=== PATIENT | female | born 1975 | race Caucasian/White ===

== ENCOUNTER → 2016-12-26 | Outpatient (CLI) | payer OTHER ==
[~2016-12-26] MED LIST: AMLO5TAB2 PO; ANTIBIOTIC; ARPZ10T; CEPH250T PO; CYCL10TA9 PO; DICY10CA26 PO; DULO60CA6; ENAL20TA PO; FAMO20TA5 PO; FLX20C; GABA300C PO; HYDR-3730 PO; HYDR1TAB PO; HYDROCODONE; HYOS-19 SL; IBP800T PO; METH4TAB PO; NF-ESOM40C PO; NF-TRA/ACE PO; PHEN16.297 PO; PHEN37.555 PO; PRM12.5SU RC; PROP1TAB77; PROP1TAB77 PO; RNT150T PO; SCP1.5TD TD; TPR25T PO; VARE1TAB17 PO
--- NOTE | 2016-12-26 18:59 | Diagnostic Imaging Report ---
PROCEDURE: CT abdomen and pelvis without contrast. TECHNIQUE: Multiple contiguous axial images were obtained through the abdomen and pelvis without the use of intravenous contrast. INDICATION: Abdominal wall mass. FINDINGS: The lung bases appear clear. The liver, the spleen, the pancreas, and the adrenal glands appear unremarkable for an unenhanced exam. Cholecystectomy clips are seen. The kidneys demonstrate no significant hydronephrosis and no urinary tract stones are seen. The abdominal aorta is normal in caliber. No para-aortic significantly enlarged lymph node is noted. There is evidence of prior ventral hernia repair with a mesh. No significant free fluid or fluid collection in the abdomen or pelvis is seen. Around the umbilicus and the subcutaneous fat, there is soft tissue thickening probably related to postoperative scarring. There is no evidence of hernia recurrence. The osseous structures demonstrate post fusion changes. IMPRESSION: 1. No urinary tract stone. 2. Postsurgical changes in the anterior abdominal wall around the umbilicus probably related to scarring with no evidence of hernia recurrence. Dictated by: Dictated on workstation # [id number]
== END ==
LOC: RAD 12:10
PROVIDERS: ATTEND Family Medicine
DX: R19.02 Left upper quadrant abdominal swelling, mass and lump (principal)
CPT/HCPCS: 74176

== ENCOUNTER → 2017-04-23 | Outpatient (CLI) | payer OTHER ==
--- NOTE | 2017-04-23 17:46 | Diagnostic Imaging Report ---
INDICATION: Acute left shoulder pain. TECHNIQUE: Three views of the left shoulder CORRELATION STUDY: None FINDINGS: The glenohumeral and acromioclavicular alignment are maintained and unremarkable. There is no evidence for acute fracture or dislocation. The visualized soft tissues are unremarkable. IMPRESSION: 1. Negative for acute bony abnormality about the shoulder. Dictated by: Dictated on workstation # [id number]
== END ==
LOC: RAD 17:27
PROVIDERS: ATTEND Nurse Practitioner Family
DX: M25.512 Pain in left shoulder (principal)
CPT/HCPCS: 73030

== ENCOUNTER → 2017-05-02 | Outpatient (CLI) | payer OTHER ==
--- NOTE | 2017-05-02 20:14 | Diagnostic Imaging Report ---
PROCEDURE: MRI left upper extremity without contrast. TECHNIQUE: Multiplanar, multisequence non contrast-enhanced MRI of the left upper extremity was accomplished. INDICATION: Left shoulder pain. No known injury. COMPARISON: Radiographs from 04/23/2017 FINDINGS: No acute fracture or dislocation is seen in the left shoulder. Alignment appears normal. There is no significant joint effusion. There is minimal tendinosis of the distal supraspinatus tendon. The remainder of the rotator cuff appears intact. No high-grade partial-thickness or full-thickness tear seen of the left rotator cuff. The long head of the biceps tendon appears normal in course and signal. The glenoid labrum is suboptimally evaluated in the absence of contrast, however, no discrete labral tear seen. No paralabral cysts are identified. The spinoglenoid and suprascapular notches are clear. There are mild degenerative changes in the acromioclavicular joint. The acromion has a flat undersurface without significant downsloping or hooking. The coracoacromial and coracoclavicular ligaments are intact. The inferior glenohumeral ligament is intact. The subcoracoid fat is clear. No soft tissue fluid collections or axillary lymphadenopathy is seen. There is moderate atrophy of the teres minor muscle. No masses or fluid collections are identified in the quadrilateral space. IMPRESSION: 1. Minimal tendinosis of the left supraspinatus tendon with no high-grade partial-thickness or full-thickness rotator cuff tear. 2. Moderate atrophy of the teres minor muscle. No masses or fluid collections are seen in the quadrilateral space. Dictated on workstation # [id number]
== END ==
LOC: RAD 17:26
PROVIDERS: ATTEND Nurse Practitioner Family
DX: M62.512 Muscle wasting and atrophy, not elsewhere classified, left shoulder (principal)
CPT/HCPCS: 73221

== ENCOUNTER → 2017-07-07 | Outpatient (CLI) | payer OTHER ==
--- NOTE | 2017-07-07 13:43 | Diagnostic Imaging Report ---
EXAMINATION: Right foot, three views. COMPARISON: October 04, 2008. MRI right ankle July 23, 2013. HISTORY: 41-year-old female, pain in the region of the dorsal foot and great toe. 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 There is diffuse nonspecific soft tissue edema. This is most notable at the level of the metatarsals. There is no identified acute fracture or dislocation. There is no radiopaque foreign body. There is no cortical or aggressive bone destruction. There is no periosteal reaction. The joint spaces appear well preserved. IMPRESSION: 1. Nonspecific diffuse soft tissue swelling, most notable at the level of the metatarsals. 2. Additional radiographic evaluation of the right foot is grossly unremarkable. Dictated by: Dictated on workstation # [id number]
== END ==
LOC: RAD 12:50
PROVIDERS: ATTEND Nurse Practitioner Family
DX: M79.89 Other specified soft tissue disorders (principal); M79.671 Pain in right foot
CPT/HCPCS: 73630

== ENCOUNTER → 2017-12-12 | Outpatient (CLI) | payer OTHER ==
[~2017-12-12] MED LIST changes: -AMLO5TAB2 PO; +AMLO5TAB7 PO
--- NOTE | 2017-12-12 13:35 | Diagnostic Imaging Report ---
PROCEDURE: CT sinuses without contrast. TECHNIQUE: Multiple contiguous axial images were obtained through the sinuses without the use of intravenous contrast. Coronal and sagittal reformations were then performed. INDICATION: Chronic sinusitis with facial pain. FINDINGS: Visualized paranasal sinuses are clear. There is no mural thickening or air-fluid level. There is slight leftward bowing of the nasal septum with mild rightward septal spurring. Ostiomeatal complexes are patent, bilaterally. IMPRESSION: No CT evidence of sinusitis. Dictated by: Dictated on workstation # [id number]
== END ==
LOC: RAD 13:00
PROVIDERS: ATTEND Otolaryngology Otolaryngology/Facial Plastic Surgery
DX: J32.9 Chronic sinusitis, unspecified (principal)
CPT/HCPCS: 70486

== ENCOUNTER 2019-03-16 05:35 | Outpatient (CLI) | payer OTHER ==
[~2019-03-16] VITALS: Ht 175.3 cm; Wt 108.6 kg
[~2019-03-16 05:35] MED LIST changes: -AMLO5TAB7 PO; +AMLO5TAB9 PO
[2019-03-16] MEDS ORDERED: AZIL1TAB3 PO (09:57)
[2019-03-16] MEDS ORDERED: BUPR100T7 PO (09:57)
[2019-03-16] MEDS ORDERED: ALPR0.5T PO (09:57)
[2019-03-16] MEDS ORDERED: CARI3CAP PO (09:57)
== END 2019-03-16 10:03 | disposition home or self-care (01) ==
LOC: PREOP 05:35
PROVIDERS: ATTEND Specialist
DX: Z01.818 Encounter for other preprocedural examination (principal)

== ENCOUNTER 2019-03-19 06:06 | Day surgery (SDC) | payer OTHER ==
[~2019-03-19] VITALS: Ht 175.3 cm; Wt 108.6 kg
[~2019-03-19 06:06] MED LIST changes: +ALPR0.5T PO; +AZIL1TAB3 PO; +BUPR100T7 PO; +CARI3CAP PO
[2019-03-19 06:15] VITALS: BP 107/68
[2019-03-19] MEDS ORDERED: LIDOCAINE PF 1% 2 ML VIAL IR PRN (06:15)
[2019-03-19] MEDS ORDERED: TIMOLOL MALEATE 0.5% 5 ML (TIMOPTIC) BTL OU PRN (06:15)
[2019-03-19] MEDS ORDERED: POVIDONE (BETADINE) OPHTH SOLN 5% 30 ML OP ONE (06:15)
[2019-03-19] MEDS ORDERED: MOXIFLOXACIN OPHTH SOLN 5 MG/ML 0.3 ML SYRINGE OP ONE (06:15)
[2019-03-19] MEDS: TETRACAINE 0.5% OPHTH SOLN 4 ML BTL (SINGLE DOSE ONLY) OU PRN ×4 (06:26→06:59)
[2019-03-19] MEDS: PHENYLEPHRINE 10% OPHTH (NEO-SYN) 5 ML BTL OU SCH ×3 (06:40→06:59)
[2019-03-19] MEDS: CYCLOPENTOLATE 1% (CYCLOGYL) 2 ML DROPS OP SCH ×3 (06:41→06:59)
[2019-03-19] MEDS ORDERED: acetaZOLAMIDE ER 500 MG CAP (DIAMOX SEQUELS) PO ONE (07:30)
[2019-03-19] MEDS ORDERED: MIDAZOLAM 2 MG/2 ML (VERSED) VIAL ONE (08:08)
[2019-03-19 08:20] VITALS: BP 94/62
--- NOTE | 2019-03-19 08:39 | Ophthalmologist Pre-Op Note ---
Pre-Operative Progress Note H&P Reviewed The H&P was reviewed, patient examined and no changes noted. Date H&P Reviewed: Mar 19, 2019 Time H&P Reviewed: 07:44 Pre-Op Dx Cataract, Left Eye LILLIE CARRASQUILLO MD Mar 19, 2019 08:39
--- NOTE | 2019-03-19 08:40 | Ophthalmology Operative Report ---
Cataract removal/placement IOL PREOPERATIVE DIAGNOSIS: Cataract Left Eye POSTOPERATIVE DIAGNOSIS: Cataract Left Eye PROCEDURE: Cataract removal and placement of posterior chamber implant, left eye SURGEON: Joseluis Carrasquillo ANESTHESIA: Topical with sedation COMPLICATIONS: None ESTIMATED BLOOD LOSS: Minimal DESCRIPTION OF PROCEDURE: After proper informed consent was obtained, the patient, a 43 female, was taken to the Operating Room and the left eye was anesthetized with tetracaine. The left eye was then prepped and draped in the usual manner. A wire lid speculum was placed. A paracentesis was made at the left hand position. Preservative free lidocaine was injected into the anterior chamber followed by viscoelastic. A clear corneal incision was made in the temporal position. A capsulorrhexis was preformed and the central nuclear and cortical material were removed. The posterior capsule was polished and an Brody 11.5 SN6AT7 was placed into the capsular bag. The residual viscoelastic was aspirated and balanced saline solution was injected into the anterior chamber. Moxifloxacin was injected into the anterior chamber. The wound was checked and found to be water tight. The patient tolerated the procedure well without complications. JOSELUIS CARRASQUILLO MD Mar 19, 2019 08:40
--- NOTE | 2019-03-19 15:05 | Anesthesia-General Post-Op ---
MAC Patient Condition Mental Status/LOC: Same as Preop Cardiovascular: Satisfactory Nausea/Vomiting: Absent Respiratory: Satisfactory Pain: Controlled Complications: Absent Post Op Complications Complications None Follow Up Care/Instructions Patient Instructions None needed. Anesthesiology Discharge Order Discharge Order Patient is doing well, no complaints, stable vital signs, no apparent adverse anesthesia problems. No complications reported per nursing. JUAN CASAS CRNA Mar 19, 2019 15:05
== END 2019-03-19 08:20 | disposition home or self-care (01) ==
LOC: SDC 06:06
PROVIDERS: ATTEND Specialist
DX: H25.12 Age-related nuclear cataract, left eye (principal); I10 Essential (primary) hypertension; M19.90 Unspecified osteoarthritis, unspecified site; G47.00 Insomnia, unspecified; F41.9 Anxiety disorder, unspecified; F32.9 Major depressive disorder, single episode, unspecified; Z91.048 Other nonmedicinal substance allergy status; Z90.710 Acquired absence of both cervix and uterus; Z90.89 Acquired absence of other organs; Z90.49 Acquired absence of other specified parts of digestive tract; Z79.899 Other long term (current) drug therapy

== ENCOUNTER 2019-03-26 06:15 | Day surgery (SDC) | payer OTHER ==
[~2019-03-26] VITALS: Ht 175 cm; Wt 108.6 kg
[2019-03-26 06:15] VITALS: BP 99/86
[2019-03-26] MEDS ORDERED: LIDOCAINE PF 1% 2 ML VIAL IR PRN (06:30)
[2019-03-26] MEDS ORDERED: POVIDONE (BETADINE) OPHTH SOLN 5% 30 ML OP ONE (06:30)
[2019-03-26] MEDS ORDERED: MOXIFLOXACIN OPHTH SOLN 5 MG/ML 0.3 ML SYRINGE OP ONE (06:30)
[2019-03-26] MEDS ORDERED: TIMOLOL MALEATE 0.5% 5 ML (TIMOPTIC) BTL OU PRN (06:30)
[2019-03-26] MEDS: TETRACAINE 0.5% OPHTH SOLN 4 ML BTL (SINGLE DOSE ONLY) OU PRN ×4 (06:50→07:10)
--- NOTE | 2019-03-26 06:54 | Ophthalmologist Pre-Op Note ---
Pre-Operative Progress Note H&P Reviewed The H&P was reviewed, patient examined and no changes noted. Date H&P Reviewed: Mar 26, 2019 Time H&P Reviewed: 06:54 Pre-Op Dx Cataract, Right Eye LILLIE CARRASQUILLO MD Mar 26, 2019 06:54
[2019-03-26] MEDS: CYCLOPENTOLATE 1% (CYCLOGYL) 2 ML DROPS OP SCH ×3 (07:01→07:20)
[2019-03-26] MEDS: PHENYLEPHRINE 10% OPHTH (NEO-SYN) 5 ML BTL OU SCH ×3 (07:01→07:21)
[2019-03-26] MEDS ORDERED: MIDAZOLAM 2 MG/2 ML (VERSED) VIAL ONE (07:27)
[2019-03-26] MEDS ORDERED: acetaZOLAMIDE ER 500 MG CAP (DIAMOX SEQUELS) PO ONE (08:00)
--- NOTE | 2019-03-26 08:09 | Ophthalmology Operative Report ---
Cataract removal/placement IOL PREOPERATIVE DIAGNOSIS: Cataract Right Eye POSTOPERATIVE DIAGNOSIS: Cataract Right Eye PROCEDURE: Cataract removal and placement of posterior chamber implant, right eye SURGEON: Joseluis Carrasquillo ANESTHESIA: Topical with sedation COMPLICATIONS: None ESTIMATED BLOOD LOSS: Minimal DESCRIPTION OF PROCEDURE: After proper informed consent was obtained, the patient, a 43 female, was taken to the Operating Room and the right eye was anesthetized with tetracaine. The right eye was then prepped and draped in the usual manner. A wire lid speculum was placed. A paracentesis was made at the left hand position. Preservative free lidocaine was injected into the anterior chamber followed by viscoelastic. A clear corneal incision was made in the temporal position. A capsulorrhexis was preformed and the central nuclear and cortical material were removed. The posterior capsule was polished and Brody 12.0 SN6AT6 IOL was placed into the capsular bag. The residual viscoelastic was aspirated and balanced saline solution was injected into the anterior chamber. Moxifloxacin was injected into the anterior chamber. The wound was checked and found to be water tight. The patient tolerated the procedure well without complications. JOSELUIS CARRASQUILLO MD Mar 26, 2019 08:09
[2019-03-26 08:15] VITALS: BP 95/59
--- NOTE | 2019-03-26 14:11 | Anesthesia-General Post-Op ---
MAC Patient Condition Mental Status/LOC: Same as Preop Cardiovascular: Satisfactory Nausea/Vomiting: Absent Respiratory: Satisfactory Pain: Controlled Complications: Absent Post Op Complications Complications None Follow Up Care/Instructions Patient Instructions None needed. Anesthesiology Discharge Order Discharge Order Patient is doing well, no complaints, stable vital signs, no apparent adverse anesthesia problems. No complications reported per nursing. BRIAN BAHENA CRNA Mar 26, 2019 14:11
== END 2019-03-26 08:15 | disposition home or self-care (01) ==
LOC: SDC 06:15
PROVIDERS: ATTEND Specialist
DX: H25.11 Age-related nuclear cataract, right eye (principal); G47.00 Insomnia, unspecified; M19.90 Unspecified osteoarthritis, unspecified site; K21.9 Gastro-esophageal reflux disease without esophagitis; I10 Essential (primary) hypertension; F32.9 Major depressive disorder, single episode, unspecified; F41.9 Anxiety disorder, unspecified; Z91.048 Other nonmedicinal substance allergy status; Z87.891 Personal history of nicotine dependence; Z90.89 Acquired absence of other organs; Z79.899 Other long term (current) drug therapy; Z90.710 Acquired absence of both cervix and uterus

== ENCOUNTER 2019-04-12 12:25 | Inpatient (IN) | payer OTHER ==
[~2019-04-12] VITALS: Ht 172.7 cm; Wt 108.4 kg
[2019-04-12] VITALS (7 sets, daily range): BP systolic 96–118; BP diastolic 57–79
[2019-04-12] MEDS ORDERED: NS IV 1000 ML 1,000 ML ONE (13:32)
--- NOTE | 2019-04-12 13:32 | ED Lower Extremity ---
General Chief Complaint: Lower Extremity Stated Complaint: R LEG SWELLING Nursing Triage Note: PT AMB TO TRIAGE WITH COMPLAINT OF RIGHT LEG SWELLING AND REDNESS. STATES SYMPTOMS STARTED YESTERDAY. STATES HAS BEEN RUNNING FEVER AT HOME AND DOES FEEL LIGHTHEADED. Nursing Sepsis Screen: No Definite Risk Source: patient Exam Limitations: no limitations History of Present Illness Date Seen by Provider: Apr 12, 2019 Time Seen by Provider: 13:28 Initial Comments To ER with reports of awakening with a reddened painful foot and right lower leg, fever of 102 and lightheadedness. She denies nausea vomiting runny nose sore throat or body aches. History of right knee anterior cruciate ligament repair, sclerotherapy for varicose veins right lower extremity many years ago. No history of cellulitis. Primary care is Dr. Lee Onset: just prior to arrival Severity: moderate Pain/Injury Location: right leg, right foot Method of Injury: unknown Modifying Factors: Worse With Movement Allergies and Home Medications Allergies Coded Allergies: adhesive tape (Verified Allergy, Unknown, Hives, 03/16/19) Home Medications Alprazolam 0.5 Mg Tablet, 0.5 MG PO BID PRN for ANXIETY, (Reported) Azilsartan Med/Chlorthalidone 1 Each Tablet, 1 EACH PO DAILY, (Reported) Bupropion HCl 100 Mg Tablet.er, 100 MG PO DAILY, (Reported) Cariprazine Hydrochloride 3 Mg Capsule, 3 MG PO DAILY, (Reported) Patient Home Medication List Home Medication List Reviewed: Yes Review of Systems Constitutional: see HPI, chills, fever EENTM: see HPI Respiratory: no symptoms reported Cardiovascular: no symptoms reported Genitourinary: no symptoms reported Musculoskeletal: no symptoms reported Skin: see HPI Psychiatric/Neurological: No Symptoms Reported Past [id number] Hx Patient Social History Alcohol Use: Occasionally Uses Recreational Drug Use: No Smoking Status: Former Smoker Recent Foreign Travel: No Contact w/Someone Who Travel: No Recent Infectious Disease Expo: No Recent Hopitalizations: Yes (18 surgeries) Immunizations Up To Date Tetanus Booster (TDap): More than 5yrs PED Vaccines UTD: No Past Medical History Surgeries: Yes (WISDOM TEETH, HERNIA X4, COLONOSCOPIES, UPPER GIS) Hysterectomy Respiratory: No Cardiac: Yes Neurological: Yes 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 Disorders: No Female 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 Disorders: Denies RADIOTELEGRAPHER History: Hysterectomy Sexually Transmitted Disease: No HIV/AIDS: No Gastrointestinal: Yes Gastroesophageal Reflux, Chronic Diarrhea Musculoskeletal: No (HX BACK SURGERY, NO PAIN NOW) Chronic Back Pain Endocrine: No Loss of Vision: Denies Hearing Impairment: Denies Cancer: No Psychosocial: Yes (TREMENDOUS AMOUNT OF STRESS) Anxiety, Depression Integumentary: No Blood Disorders: No Adverse Reaction/Blood Tranf: No Family Medical History No Family History of: AIDS Abdominal aortic aneurysm [place]'s disease Alcoholism Alzheimer's disease Aphasia Arthritis Asthma Cancer of mouth Cardiovascular disease Cataracts Colon cancer Completed stroke Congenital disease Congenital heart disease Coronary thrombosis Cystic fibrosis Deafness or hearing loss Dementia Diabetes mellitus Drug abuse Dysphasia Fibrocystic disease of breast Gastroenteritis Glaucoma Headache disorder Hypercholesterolemia Hypertension Infertility Kidney disease Myocardial infarction Neoplasm Not obtainable due to adoption Osteoporosis Parkinson's disease Prostate cancer Psychosocial problem Respiratory disorder Seizure disorder Severe allergy Thyroid disease Tuberculosis Visual disorder Physical Exam Vital Signs Vital Signs - First Documented 04/12/19 13:09 Temp 36.9 Pulse 114 Resp 20 B/P (MAP) 96/68 (77) Pulse Ox 99 O2 Delivery Room Air Capillary Refill : Less Than 3 Seconds Height, Weight, BMI Height: 5'9.00" Weight: 221lbs. 0.0oz. 100.507225cn; 35.00 BMI Method:Stated General Appearance: WD/WN, no apparent distress HEENT: PERRL/EOMI, normal ENT inspection Neck: non-tender, full range of motion Respiratory: no respiratory distress, no accessory muscle use Hips: bilateral hip non-tender, bilateral hip normal inspection, bilateral hip normal range of motion Legs: bilateral leg non-tender, bilateral leg normal inspection, bilateral leg normal range of motion Knees: bilateral knee non-tender, bilateral knee normal inspection, bilateral knee normal range of motion Ankles: bilateral ankle non-tender, bilateral ankle normal inspection, bilateral ankle normal range of motion Feet: right foot other (beginning at the dorsal aspect of the right foot is significant erythema that is not well demarcated, there is no evidence that this is a purulent infection. There is erythema of the anterior ankle and then a separate spots to the lateral proximal right tib-fib/fib.) Neurologic/Psychiatric: alert, normal mood/affect, oriented x 3 Skin: normal color, warm/dry Progress/Results/Core Measures Results/Orders Lab Results Laboratory Tests Test 04/12/19 13:30 04/12/19 14:10 Range/Units White Blood Count 12.1 H 4.3-11.0 10^3/uL Red Blood Count 4.21 L 4.35-5.85 10^6/uL Hemoglobin 13.6 11.5-16.0 G/DL Hematocrit 39 35-52 % Mean Corpuscular Volume 94 80-99 FL Mean Corpuscular Hemoglobin 32 25-34 PG Mean Corpuscular Hemoglobin Concent 35 32-36 G/DL Red Cell Distribution Width 12.4 10.0-14.5 % Platelet Count 215 130-400 10^3/uL Mean Platelet Volume 9.5 7.4-10.4 FL Neutrophils (%) (Auto) 92 H 42-75 % Lymphocytes (%) (Auto) 4 L 12-44 % Monocytes (%) (Auto) 4 0-12 % Eosinophils (%) (Auto) 0 0-10 % Basophils (%) (Auto) 0 0-10 % Neutrophils # (Auto) 11.1 H 1.8-7.8 X 10^3 Lymphocytes # (Auto) 0.5 L 1.0-4.0 X 10^3 Monocytes # (Auto) 0.5 0.0-1.0 X 10^3 Eosinophils # (Auto) 0.0 0.0-0.3 10^3/uL Basophils # (Auto) 0.0 0.0-0.1 10^3/uL Neutrophils % (Manual) 92 % Lymphocytes % (Manual) 4 % Monocytes % (Manual) 1 % Band Neutrophils 3 % Blood Morphology Comment NORMAL Prothrombin Time 13.9 12.2-14.7 SEC INR Comment 1.0 0.8-1.4 Activated Partial Thromboplast Time 30 24-35 SEC Sodium Level 133 L 135-145 MMOL/L Potassium Level 4.0 3.6-5.0 MMOL/L Chloride Level 97 L 98-107 MMOL/L Carbon Dioxide Level 24 21-32 MMOL/L Anion Gap 12 5-14 MMOL/L Blood Urea Nitrogen 17 7-18 MG/DL Creatinine 1.57 H 0.60-1.30 MG/DL Estimat Glomerular Filtration Rate 36 BUN/Creatinine Ratio 11 Glucose Level 128 H 70-105 MG/DL Calcium Level 10.3 H 8.5-10.1 MG/DL Corrected Calcium 10.1 8.5-10.1 MG/DL Total Bilirubin 0.7 0.1-1.0 MG/DL Aspartate Amino Transf (AST/SGOT) 24 5-34 U/L Alanine Aminotransferase (ALT/SGPT) 18 0-55 U/L Alkaline Phosphatase 71 40-136 U/L Total Protein 7.8 6.4-8.2 GM/DL Albumin 4.2 3.2-4.5 GM/DL Lactic Acid Level 1.77 0.50-2.00 MMOL/L My Orders Orders - TUCKER TAMAYO APRN Cbc With Automated Diff (04/12/19 13:34) Comprehensive Metabolic Panel (04/12/19 13:34) Blood Culture (04/12/19 13:34) Sputum Culture (04/12/19 13:34) Urinalysis (04/12/19 13:34) Urine Culture (04/12/19 13:34) Protime With Inr (04/12/19 13:34) Partial Thromboplastin Time (04/12/19 13:34) Chest 1 View, Ap/Pa Only (04/12/19 13:34) Ed Iv/Invasive Line Start (04/12/19 13:34) Ed Iv/Invasive Line Start (04/12/19 13:34) Vital Signs Adult Sepsis Patie Q15M (04/12/19 13:34) O2 (04/12/19 13:34) Remove Rings In Anticipation O (04/12/19 13:34) Lactic Acid Analyzer (04/12/19 13:34) Ns Iv 1000 Ml (Sodium Chloride 0.9%) (04/12/19 13:45) Cefazolin Injection (Ancef Injection) (04/12/19 13:45) Vancomycin Injection (Vancomycin Injecti (04/12/19 13:45) Ns Iv 1000 Ml (Sodium Chloride 0.9%) (04/12/19 13:32) Ns Iv 1000 Ml (Sodium Chloride 0.9%) (04/12/19 13:45) Manual Differential (04/12/19 13:30) Us Venous Lower Ext Rt (04/12/19 14:07) Medications Given in ED Current Medications Medications Dose Ordered Sig/Cassius Route Start Time Stop Time Status Last Admin Dose Admin Cefazolin Sodium 1000 mg/Sterile Water 10 ml @ 200 mls/hr ONCE ONCE IV 04/12/19 13:45 04/12/19 13:47 DC 04/12/19 14:06 200 MLS/HR Vancomycin HCl 1000 mg/Sodium Chloride 250 ml @ 250 mls/hr ONCE ONCE IV 04/12/19 13:45 04/12/19 14:44 DC 04/12/19 14:11 250 MLS/HR Vital Signs/I&O 04/12/19 13:09 Temp 36.9 Pulse 114 Resp 20 B/P (MAP) 96/68 (77) Pulse Ox 99 O2 Delivery Room Air Blood Pressure Mean: 77 Departure Communication (Admissions) Time/Spoke to Admitting Phy: 14:[address] Rome, we will admit on Ancef and vancomycin. Initial blood pressure 96 systolic, repeat blood pressure 82/66, heart rate 102. I will give her fluid bolus based on ideal body weight of 68 kg rather than actual body weight. 1453-after a 2 L fluid bolus heart rate has come down to 82, oxygen remains 99% room air, blood pressure up to 101/65. Capillary refill is brisk, alert and oriented Impression Primary Impression: Severe sepsis Additional Impression: Cellulitis of right lower extremity Disposition: ADMITTED INPATIENT Condition: Stable Admissions Decision to Admit Reason: Admit from ER (General) Decision to Admit/Date: Apr 12, 2019 Time/Decision to Admit Time: 13:41 Departure-Patient Inst. Referrals: ITZ LEE MD (PCP/Family) Primary Care Physician TUCKER TAMAYO APRN Apr 12, 2019 13:32
[2019-04-12 13:42] LABS: BASOPHILS % (AUTO) 0 % (0-10); EOSINOPHILS % (AUTO) 0 % (0-10); HEMATOCRIT 39 % (35-52); HEMOGLOBIN 13.6 G/DL (11.5-16.0); LYMPHOCYTES # (AUTO) 0.5 X 10^3 (1.0-4.0); LYMPHOCYTES % (AUTO) 4 % (12-44); MEAN CORPUSCULAR HEMOGLOBIN 32 PG (25-34); MEAN CORPUSCULAR HGB CONC 35 G/DL (32-36); MEAN CORPUSCULAR VOLUME 94 FL (80-99); MEAN PLATELET VOLUME 9.5 FL (7.4-10.4); MONOCYTES # (AUTO) 0.5 X 10^3 (0.0-1.0); MONOCYTES % (AUTO) 4 % (0-12); NEUTROPHILS # (AUTO) 11.1 X 10^3 (1.8-7.8); NEUTROPHILS % (AUTO) 92 % (42-75); PLATELET COUNT 215 10^3/uL (130-400); RED CELL DISTRIBUTION WIDTH 12.4 % (10.0-14.5); WHITE BLOOD COUNT 12.1 10^3/uL (4.3-11.0)
[2019-04-12] MEDS ORDERED: ceFAZolin INJECTION 1,000 MG in WATER (STERILE) FOR INJECTION 10 ML IV ONE (13:45)
[2019-04-12] MEDS ORDERED: VANCOMYCIN INJECTION 1,000 MG in NS (IVPB) 250 ML IV ONE (13:45)
[2019-04-12] MEDS ORDERED: NS IV ONE (13:45)
[2019-04-12] MEDS: NS IV 1000 ML 1,000 ML IV SCH ×2 (13:47→13:58)
[2019-04-12 13:53] LABS: PROTHROMBIN TIME PATIENT 13.9 SEC (12.2-14.7)
[2019-04-12 14:00] LABS: ALBUMIN 4.2 GM/DL (3.2-4.5); BILIRUBIN,TOTAL 0.7 MG/DL (0.1-1.0); CALCIUM 10.3 MG/DL (8.5-10.1); CREATININE SERUM 1.57 MG/DL (0.60-1.30); TOTAL PROTEIN 7.8 GM/DL (6.4-8.2)
[2019-04-12 14:26] LABS: BAND NEUTROPHILS 3 %; LYMPHOCYTES % (MANUAL) 4 %; MONOCYTES % (MANUAL) 1 %; NEUTROPHILS % (MANUAL) 92 %; RBC MORPH NORMAL
--- NOTE | 2019-04-12 14:28 | Diagnostic Imaging Report ---
INDICATION: Right leg swelling and fever and lightheadedness. Frontal chest obtained at 0214 p.m. Heart and mediastinal silhouette are normal in appearance. The lungs are clear. There is no pneumothorax or pleural fluid IMPRESSION: Negative chest. Dictated by: Dictated on workstation # [id number]
--- NOTE | 2019-04-12 15:35 | Diagnostic Imaging Report ---
PROCEDURE: US right lower extremity venous. TECHNIQUE: Multiple real-time grayscale images were obtained over the right lower extremity in various projections. Additional spectral analysis and color Doppler duplex images were also obtained. INDICATION: Pain and swelling. FINDINGS: The right common femoral, femoral, popliteal, and tibial veins demonstrate normal response to compression, augmentation, and Valsalva. There are two lymph nodes in the right groin, largest measuring up to 4.3 x 1.5 x 1.3 cm, and the second largest lymph node measures 2.3 x 1.4 x 1.1 cm. Both of these appear reactive in nature with fatty hilum. IMPRESSION: No evidence of deep venous thrombosis in the right lower extremity. Reactive-appearing adenopathy in the right groin. Dictated by: Dictated on workstation # [id number]
[2019-04-12 15:41] LABS: BILIRUBIN,URINE NEGATIVE (NEGATIVE); CLARITY,URINE CLOUDY; COLOR,URINE YELLOW; GLUCOSE, URINE (UA) NEGATIVE (NEGATIVE); KETONES,URINE NEGATIVE (NEGATIVE); LEUKOCYTE ESTERASE ,URINE 2+ (NEGATIVE); NITRITE,URINE NEGATIVE (NEGATIVE); PH,URINE 5.5 (5-9); PROTEIN,URINE TRACE (NEGATIVE)
[2019-04-12 16:03] LABS: RBC,URINE 25-50 /HPF; WBC,URINE >100 /HPF
[2019-04-12 16:04] LABS: BACTERIA,URINE MODERATE /HPF
--- NOTE | 2019-04-12 16:13 | History & Physical-Hospitalist ---
NEHAL RODRIGUEZ [facility] / [facility] 04/12/19 1613: History of Present Illness HPI/Chief Complaint CC: Right LE pain and Right foot tightness HPI: Mrs. Vo is a 43 yo WF presenting with R LE pain and R foot tightness. Patient stated that she started to feel different yesterday afternoon at around 5 pm. She states that she had a 'tingling' sensation in her stomach and ended up sleeping the rest of the night. Last night she stated that she had a fever of 101 F and a fever of 102.5 F this morning. She states that she took Tylenol at 7 am and ibuprofen at noon. She noticed that she had developed right foot tightness and R LE pain in her groin and popliteal area. She states that she feels pain upon walking, but that it ceases when she ends up resting. She also states that the tightness is the worst in the evening, relating it to her many knee surgeries. She stated that this swelling has become a problem after undergoing sclerotherapy 8 years ago, and was referred to a lymphedema clinic, but couldn't make it to either [facility] or [facility]. Patient describes that she has tried compression stockings, but doesn't help the swelling all that much. She denies any trauma to the affected areas. Source: patient, family Exam Limitations: no limitations Date Seen 04/12/19 Time Seen by a Provider: 16:02 Attending Physician Mary Rome MD PCP Manny Lee MD Referring Physician Date of Admission Apr 12, 2019 at 14:51 Home Medications & Allergies Home Medications Reviewed patient Home Medication Reconciliation performed by pharmacy medication reconciliations surface lay out technician and/or nursing. Patients Allergies have been reviewed. Allergies Allergies Coded Allergies adhesive tape (Verified Allergy, Unknown, Hives, 03/16/19) Past Umolryx-Aqjuwg-Cnozbl Hx Patient Social History Marrital Status: Number of Children: 3 Number of living children: 3 Employed/Student: employed Alcohol Use: Occasionally Uses Recreational Drug Use: No Smoking Status: Former Smoker Cigaretts per day: 20 Former Smoker, Quit: Mar 03, 2016 2nd Hand Smoke Exposure: No Physical Abuse Screen: No Sexual Abuse: No Recent Foreign Travel: No Contact w/other who traveled: No Recent Hopitalizations: Yes (18 surgeries) Recent Infectious Disease Expo: No Immunizations Up To Date Tetanus Booster (TDap): More than 5yrs Pediatric: No Seasonal Allergies Seasonal Allergies: No Past Medical History Surgeries: Gallbladder, Hysterectomy, Orthopedic (Multiple Knee arthroscopies ), Tonsillectomy, Tubal Ligation Currently Using CPAP: No Currently Using BIPAP: No Cardiac: Chronic Edema/Swelling (R LE ), Hypertension : No 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: No Sexually Transmitted Disease: No HIV/AIDS: No Female 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 Disorders: Denies Hysterectomy Gastrointestinal: Gastroesophageal Reflux, Chronic Diarrhea Musculoskeletal: Chronic Back Pain Are Your Blood Sugars Over 250: No Loss of Vision: Denies Hearing Impairment: Denies Psychosocial: Anxiety, Depression History of Blood Disorders: No Adverse Reaction to Blood Melendez: No Family History No Family History of: AIDS Abdominal aortic aneurysm Mayking's disease Alcoholism Alzheimer's disease Aphasia Arthritis Asthma Cancer of mouth Cardiovascular disease Cataracts Colon cancer Completed stroke Congenital disease Congenital heart disease Coronary thrombosis Cystic fibrosis Deafness or hearing loss Dementia Diabetes mellitus Drug abuse Dysphasia Fibrocystic disease of breast Gastroenteritis Glaucoma Headache disorder Hypercholesterolemia Hypertension Infertility Kidney disease Myocardial infarction Neoplasm Not obtainable due to adoption Osteoporosis Parkinson's disease Prostate cancer Psychosocial problem Respiratory disorder Seizure disorder Severe allergy Thyroid disease Tuberculosis Visual disorder Diabetes, Psychiatric Problems (bipolar disorder -- sister ), Other Conditions/Hx (PCOS/infertility -- sister) Review of Systems Constitutional: No no symptoms reported, No see HPI, No chills, No diaphoresis, No dizziness, No fever; malaise; No weakness, No weight gain, No weight loss, No other EENTM: No see HPI, No no symptoms reported, No ear discharge, No hearing loss, No ear pain, No blurred vision, No double vision, No eye pain, No tearing, No vision loss, No dental problems, No hoarseness, No mouth pain, No mouth swelling, No epistaxis, No nose congestion, No nose pain, No throat pain, No throat swelling, No other Respiratory: No no symptoms reported, No see HPI, No cough, No dyspnea on exertion, No hemoptysis, No orthopnea, No phlegm, No short of breath, No stridor, No wheezing, No other Cardiovascular: No no symptoms reported, No see HPI, No chest pain, No edema, No Hx of Intervention, No palpitations; syncope (occasionally ); No vascular heart diseas, No other Gastrointestinal: No RUQ, No LUQ, No RLQ, No LLQ, No no symptoms reported, No see HPI, No abdominal pain, No constipation; diarrhea; No dysphagia, No hematemesis; heartburn; No jaundice, No loss of appetite, No melena, No nausea, No vomiting, No other Genitourinary: No no symptoms reported, No see HPI, No decreased output, No discharge, No dysuria, No frequency, No hematuria, No hesitancy, No incontinence, No nocturia, No pain, No other : No Control/STD Prophylaxis: None Musculoskeletal: back pain, joint pain Skin: No no symptoms reported, No see HPI, No change in color, No change in hair/nails, No dryness, No hx of skin cancer, No lesions, No lumps, No pruritus, No rash, No other Psychiatric/Neurological: Anxiety, Depressed, Other (Personality B traits/Possible Mood disorder) Physical Exam Physical Exam Vital Signs Vital Signs - First Documented 04/12/19 13:09 Temp 36.9 Pulse 114 Resp 20 B/P (MAP) 96/68 (77) Pulse Ox 99 O2 Delivery Room Air Capillary Refill : Less Than 3 Seconds Height, Weight, BMI Height: 5'9.00" Weight: 221lbs. 0.0oz. 100.061732sc; 35.00 BMI Method:Stated General Appearance: No Apparent Distress, WD/WN Eyes: Bilateral Eye Normal Inspection, Bilateral Eye PERRL, Bilateral Eye EOMI HEENT: PERRL/EOMI, Pharynx Normal, Moist Mucous Membranes Neck: Full Range of Motion, Non Tender, Supple Respiratory: Chest Non Tender, Lungs Clear, Normal Breath Sounds, No Accessory Muscle Use, No Respiratory Distress Cardiovascular: Regular Rate, Rhythm, No Edema, No Gallop, No JVD, No Murmur, Normal Peripheral Pulses Gastrointestinal: Normal Bowel Sounds, No Organomegaly, No Pulsatile Mass, Non Tender, Soft Extremity: Normal Capillary Refill, Normal Inspection, Normal Range of Motion, Inflammation (R LE + foot) Neurologic/Psychiatric: Alert, Oriented x3, No Motor/Sensory Deficits, Normal 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 Assessment/Plan Admission Diagnosis Cellulitis + Lymphedema Admission Status: Inpatient Order (span 2 midnights) Reason for Inpatient Admission: Severe Sepsis Assessment and Plan Cellulitis + Severe Sepsis: - Pneumatic compression + elevation of right leg - IV Ceftriaxone + Vanco - IVF NS 145 mL/hr - NSAIDs for pain relief: acetaminophen 800 mg PO TID PRN Venous stasis/lymphedema: - Consult OT UTI: treated with antibiotics for sepsis Anxiety/Depression/Mood Disorder: - Continue home medicine: Bupropion/Xanax/Vraylar Acid-Reflux: - Continue Nexium: 40 mg HS - Low fat diet due to diarrheal issues JEEVAN: - IVF NS 145 mL/hr DVT Prophylaxis: - SubQ Lovenox - SCDs MARY ROME MD 04/12/191923: Past Gepaduf-Gjjfsl-Ddsuvm Hx Past Med/Social Hx: Reviewed Nursing Past Med/Soc Hx Family History No Family History of: AIDS Abdominal aortic aneurysm Mayking's disease Alcoholism Alzheimer's disease Aphasia Arthritis Asthma Cancer of mouth Cardiovascular disease Cataracts Colon cancer Completed stroke Congenital disease Congenital heart disease Coronary thrombosis Cystic fibrosis Deafness or hearing loss Dementia Diabetes mellitus Drug abuse Dysphasia Fibrocystic disease of breast Gastroenteritis Glaucoma Headache disorder Hypercholesterolemia Hypertension Infertility Kidney disease Myocardial infarction Neoplasm Not obtainable due to adoption Osteoporosis Parkinson's disease Prostate cancer Psychosocial problem Respiratory disorder Seizure disorder Severe allergy Thyroid disease Tuberculosis Visual disorder Assessment/Plan Assessment and Plan Admitted with severe sepsis. Source unclear of UTI vs cellulitis but will cover with Vancomycin and Rocephin to cover both. Lactic acid normal but was hypotensive in the ER and also has an JEEVAN so will continue IVF of LR at 150cc/hr. Received 30cc/kg bolus per IBW in the ER. Will consult OT for lymphedema management and hold home meds for hypertension due to hypotension. Diagnosis/Problems Diagnosis/Problems (1) UTI (urinary tract infection) (2) Hypertension (3) Severe sepsis Status: Acute (4) Cellulitis of right lower extremity Status: Acute Supervisory-Addendum Brief Verification & Attestation Participated in pt care: history, MDM, physical Personally performed: exam, history, MDM, supervision of care Care discussed with: Medical Student Procedures: n/a Results interpretation: Verified all documentation Verification and Attestation of Medical Student E/M Service A medical student performed and documented this service in my presence. I reviewed and verified all information documented by the medical student and made modifications to such information, when appropriate. I personally performed the physical exam and medical decision making. Mary Rome, Apr 12, 2019,19:20 [facility] RODRIGUE[facility] Apr 12, 2019 16:13 MARY ROME MD Apr 12, 2019 19:24
[2019-04-12] MEDS ORDERED: MILK OF MAGNESIA 400 MG/5 ML 30 ML UDC PO PRN (16:45)
[2019-04-12] MEDS ORDERED: ANTACID SUSP 30 ML UDC (MYLANTA) PO PRN (16:45)
[2019-04-12] MEDS ORDERED: ALPRAZolam 0.5 MG (XANAX) TAB PO PRN (16:45)
[2019-04-12] MEDS ORDERED: BENZONATATE 100 MG (TESSALON) CAPSULE PO PRN (16:45)
[2019-04-12] MEDS ORDERED: MELATONIN 3 MG TABLET PO PRN (16:45)
[2019-04-12] MEDS ORDERED: ONDANSETRON 4 MG/2 ML (SDV) Z0FRAN IV PRN ×2 (16:45→17:15)
[2019-04-12] MEDS ORDERED: cefTRIAXone FOR IV USE 1,000 MG in WATER (STERILE) FOR INJECTION 10 ML IV SCH (17:15)
[2019-04-12] MEDS ORDERED: ACETAMINOPHEN 325 MG TABLET PO PRN (17:15)
[2019-04-12] MEDS ORDERED: LACTATED RINGERS IV PRN (17:15)
--- NOTE | 2019-04-12 17:22 | NUR ---
CR 1.57; CR CL < 60; WT 107.3 KG; VANCO 2 GM IV BOLUS THEN 1500 MG IV Q24H X 3 DAYS
[2019-04-12] MEDS ORDERED: VANCOMYCIN 1 GM/NS 250 ML IVPB IV NR ×2 (17:30)
[2019-04-12] MEDS: LACTATED RINGERS 1,000 ML IV SCH ×4 (17:55→23:24)
[2019-04-12] MEDS: ACETAMINOPHEN 325 MG TABLET PO PRN (17:56)
[2019-04-12] MEDS ORDERED: CATHETER FLUSH 10 ML SYR IV PRN (18:30)
[2019-04-12] MEDS: ENOXAPARIN 40 MG/0.4 ML (LOVENOX) SYR SC SCH (19:09)
[2019-04-13] VITALS (12 sets, daily range): BP systolic 89–127; BP diastolic 45–83
[2019-04-13] MEDS: ACETAMINOPHEN 325 MG TABLET PO PRN ×2 (02:28→20:21)
[2019-04-13 04:15] LABS: BASOPHILS % (AUTO) 0 % (0-10); EOSINOPHILS % (AUTO) 0 % (0-10); HEMATOCRIT 33 % (35-52); HEMOGLOBIN 11.1 G/DL (11.5-16.0); LYMPHOCYTES # (AUTO) 0.4 X 10^3 (1.0-4.0); LYMPHOCYTES % (AUTO) 6 % (12-44); MEAN CORPUSCULAR HEMOGLOBIN 32 PG (25-34); MEAN CORPUSCULAR HGB CONC 34 G/DL (32-36); MEAN CORPUSCULAR VOLUME 94 FL (80-99); MEAN PLATELET VOLUME 9.6 FL (7.4-10.4); MONOCYTES # (AUTO) 0.3 X 10^3 (0.0-1.0); MONOCYTES % (AUTO) 4 % (0-12); NEUTROPHILS # (AUTO) 5.6 X 10^3 (1.8-7.8); NEUTROPHILS % (AUTO) 90 % (42-75); PLATELET COUNT 145 10^3/uL (130-400); RED CELL DISTRIBUTION WIDTH 12.2 % (10.0-14.5); WHITE BLOOD COUNT 6.2 10^3/uL (4.3-11.0)
--- NOTE | 2019-04-13 04:23 | Pulmonary Consultation ---
History of Present Illness History of Present Illness Date Seen by Provider: Apr 13, 2019 Time Seen by Provider: 04:20 Date of Admission Allergies and Home Medications Allergies Coded Allergies: adhesive tape (Verified Allergy, Unknown, Hives, 03/16/19) Home Medications Alprazolam 0.5 Mg Tablet, 0.5 MG PO BID PRN for ANXIETY, (Reported) Azilsartan Med/Chlorthalidone 1 Each Tablet, 1 EACH PO DAILY, (Reported) Bupropion HCl 100 Mg Tablet.er, 100 MG PO DAILY, (Reported) Cariprazine Hydrochloride 3 Mg Capsule, 3 MG PO DAILY, (Reported) Past Iuaefca-Hnkzmf-Danzgs Hx Past Med/Social Hx: Reviewed Nursing Past Med/Soc Hx Patient Social History Alcohol Use: Occasionally Uses Recreational Drug Use: No Smoking Status: Former Smoker Former Smoker, Quit: Mar 03, 2016 2nd Hand Smoke Exposure: No Recent Foreign Travel: No Contact w/Someone Who Travel: No Recent Infectious Disease Expo: No Recent Hopitalizations: Yes (18 surgeries) Immunizations Up To Date Tetanus Booster (TDap): More than 5yrs PED Vaccines UTD: No Seasonal Allergies Seasonal Allergies: No Past Medical History Surgeries: Yes (WISDOM TEETH, HERNIA X4, COLONOSCOPIES, UPPER GIS) Gallbladder, Hysterectomy, Orthopedic (Multiple Knee arthroscopies ), Tonsillectomy, Tubal Ligation Respiratory: No Currently Using CPAP: No Currently Using BIPAP: No Cardiac: Yes Chronic Edema/Swelling (R LE ), Hypertension Neurological: Yes : No 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 Disorders: No Female 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 Disorders: 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 Sexually Transmitted Disease: No HIV/AIDS: No Gastrointestinal: Yes Gastroesophageal Reflux, Chronic Diarrhea Musculoskeletal: No (HX BACK SURGERY, NO PAIN NOW) Chronic Back Pain Endocrine: No Are Your Blood Sugars Over 250: No Loss of Vision: Denies Hearing Impairment: Denies Cancer: No Psychosocial: Yes (TREMENDOUS AMOUNT OF STRESS) Anxiety, Depression Integumentary: No Blood Disorders: No Adverse Reaction/Blood Tranf: No Family Medical History No Family History of: AIDS Abdominal aortic aneurysm Myles's disease Alcoholism Alzheimer's disease Aphasia Arthritis Asthma Cancer of mouth Cardiovascular disease Cataracts Colon cancer Completed stroke Congenital disease Congenital heart disease Coronary thrombosis Cystic fibrosis Deafness or hearing loss Dementia Diabetes mellitus Drug abuse Dysphasia Fibrocystic disease of breast Gastroenteritis Glaucoma Headache disorder Hypercholesterolemia Hypertension Infertility Kidney disease Myocardial infarction Neoplasm Not obtainable due to adoption Osteoporosis Parkinson's disease Prostate cancer Psychosocial problem Respiratory disorder Seizure disorder Severe allergy Thyroid disease Tuberculosis Visual disorder Diabetes, Psychiatric Problems (bipolar disorder -- sister ), Other Conditions/Hx (PCOS/infertility -- sister) Sepsis Event Evaluation Height, Weight, BMI Height: 5'9.00" Weight: 221lbs. 0.0oz. 100.256164hm; 35.00 BMI Method:Stated Exam Exam Vital Signs Date Time Temp Pulse Resp B/P (MAP) Pulse Ox O2 Delivery O2 Flow Rate FiO2 04/12/19 23:20 96 Room Air 04/12/19 23:10 37.6 104 24 118/79 (92) 99 Room Air 04/12/19 22:00 92 20 118/79 (92) 94 Room Air 04/12/19 21:00 90 24 99/64 (76) 90 Room Air 04/12/19 20:36 36.7 04/12/19 20:00 36.4 04/12/19 20:00 84 17 101/67 (78) Room Air 04/12/19 19:20 99 Room Air 04/12/19 19:00 86 04/12/19 19:00 86 21 96/57 (70) 99 Room Air 04/12/19 19:00 Room Air 04/12/19 18:00 90 13 113/57 (75) 99 Room Air 04/12/19 17:01 85 04/12/19 17:00 36.8 04/12/19 17:00 100 Room Air 04/12/19 17:00 82 36 100/70 (80) Room Air 04/12/19 15:55 80 16 102/75 98 04/12/19 13:09 36.9 114 20 96/68 (77) 99 Room Air I & O 04/13/19 07:00 Intake Total 4630 ml Output Total 1250 ml Balance 3380 ml Height & Weight Height: 5'9.00" Weight: 221lbs. 0.0oz. 100.880970dt; 35.00 BMI Method:Stated General Appearance: No Apparent Distress, WD/WN HEENT: PERRL/EOMI, Pharynx Normal, Moist Mucous Membranes Neck: Full Range of Motion, Non Tender, Supple Respiratory: Chest Non Tender, Lungs Clear, Normal Breath Sounds, No Accessory Muscle Use, No Respiratory Distress Cardiovascular: Regular Rate, Rhythm, No Edema, No Gallop, No JVD, No Murmur, Normal Peripheral Pulses Capillary Refill: Less Than 3 Seconds Extremity: Normal Capillary Refill, Normal Inspection, Normal Range of Motion, Inflammation (R LE + foot) Neurologic/Psychiatric: Alert, Oriented x3, No Motor/Sensory Deficits, Normal 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
[2019-04-13 04:34] LABS: ALANINE AMINOTRANSFERASE 19 U/L (0-55); ALBUMIN 3.3 GM/DL (3.2-4.5); ALKALINE PHOSPHATASE 62 U/L (40-136); BILIRUBIN,TOTAL 0.4 MG/DL (0.1-1.0); BUN/CREATININE RATIO 15; CALCIUM 8.8 MG/DL (8.5-10.1); CARBON DIOXIDE 20 MMOL/L (21-32); CHLORIDE 102 MMOL/L (98-107); CREATININE SERUM 0.97 MG/DL (0.60-1.30); GFR ESTIMATED > 60; GLUCOSE 140 MG/DL (70-105); MAGNESIUM 1.5 MG/DL (1.6-2.4); PHOSPHORUS 1.4 MG/DL (2.3-4.7); POTASSIUM 3.4 MMOL/L (3.6-5.0); SODIUM 132 MMOL/L (135-145)
[2019-04-13] MEDS ORDERED: IBUPROFEN 600 MG (MOTRIN) TAB PO ONE (05:04)
[2019-04-13] MEDS ORDERED: KCL 20 MEQ TAB (K-DUR) PO ONE (05:15)
[2019-04-13] MEDS: MAGNESIUM 1 GM/100 ML IVPB 100 ML IV SCH ×3 (05:19→06:05)
[2019-04-13] MEDS ORDERED: KCL 20 MEQ TAB (K-DUR) PO SCH (06:00)
[2019-04-13] MEDS ORDERED: IBUPROFEN 600 MG (MOTRIN) TAB PO SCH (06:00)
[2019-04-13] MEDS ORDERED: POTASSIUM CL 10MEQ/50ML IVPB 50 ML IV SCH (06:00)
--- NOTE | 2019-04-13 07:48 | Diagnostic Imaging Report ---
CLINICAL INDICATION: Patient with dyspnea. EXAM: Portable chest x-ray upright view. COMPARISONS: Portable chest x-ray dated 04/12/2019. FINDINGS: Lungs/pleura: Lungs are clear. There is no pneumothorax. There is no pleural effusion. Mediastinum: Unremarkable. Pulmonary vasculature: Unremarkable. Heart: Unremarkable. Bones/extrathoracic soft tissue: Unremarkable. IMPRESSION: There is no radiographic evidence of acute cardiopulmonary process. Dictated by: Dictated on workstation # [id number]
--- NOTE | 2019-04-13 08:11 | Progress Note - Hospitalist ---
NEHAL RODRIGUEZ [facility] 04/13/19 0811: Subjective HPI/CC On Admission Date Seen by Provider: Apr 13, 2019 Time Seen by Provider: 08:06 CC: Right LE pain and Right foot tightness HPI: Mrs. Vo is a 43 yo WF presenting with R LE pain and R foot tightness. Patient stated that she started to feel different yesterday afternoon at around 5 pm. She states that she had a 'tingling' sensation in her stomach and ended up sleeping the rest of the night. Last night she stated that she had a fever of 101 F and a fever of 102.5 F this morning. She states that she took Tylenol at 7 am and ibuprofen at noon. She noticed that she had developed right foot tightness and R LE pain in her groin and popliteal area. She states that she feels pain upon walking, but that it ceases when she ends up resting. She also states that the tightness is the worst in the evening, relating it to her many knee surgeries. She stated that this swelling has become a problem after undergoing sclerotherapy 8 years ago, and was referred to a lymphedema clinic, but couldn't make it to either [facility] or [facility]. Patient describes that she has tried compression stockings, but doesn't help the swelling all that much. She denies any trauma to the affected areas. Subjective/Events-last exam Patient stated that she was in mild distress this morning and was unable to sleep last night. She attributes this to the being in the hospital. She states that she has fluctuated between states of fevers and chills throughout the night . She also states that she has a headache that is rate at 7/10, but decreased to 5/10 with administration of Ibuprofen. She states that she is able to ambulate well, but her foot is still 'tight' feeling and is relieved upon rest to its normal tightness. She denies any new or worsening symptoms for her R LE. She is able to void and stool without issue. She states that she has been able to eat well, but has a mild decrease in her appetite. Focused Exam Sepsis Stage: Severe Sepsis Possible Source: Other (UTI and cellulitis are possible causes) Lactate Level 04/12/19 14:10: Lactic Acid Level 1.77 Respiratory: Chest Non Tender, Lungs Clear, Normal Breath Sounds, No Accessory Muscle Use, No Respiratory Distress Cardiovascular: Regular Rate, Rhythm, No Edema, No Gallop, No JVD, No Murmur, Normal Peripheral Pulses Peripheral Pulses: 2+ Carotid (R), 2+ Carotid (L), 2+ Dorsalis Pedis (R), 2+ Left Dors-Pedis (L), 2+ Radial Pulses (R), 2+ Radial Pulses (L) Skin: normal color, warm/dry, other (edema of the right foot + erythema of the R Leg and foot ) Objective Exam Vital Signs Vital Signs Date Time Temp Pulse Resp B/P (MAP) Pulse Ox O2 Delivery O2 Flow Rate FiO2 04/13/19 08:00 94 Room Air 04/13/19 08:00 105 42 115/69 (84) 2.00 04/13/19 08:00 36.1 Capillary Refill : Less Than 3 Seconds General Appearance: Anxious, Mild Distress HEENT: PERRL/EOMI, Pharynx Normal Neck: Non Tender, Supple Respiratory: Chest Non Tender, Lungs Clear, Normal Breath Sounds, No Accessory Muscle Use, No Respiratory Distress Cardiovascular: Regular Rate, Rhythm, No Edema, No Gallop, No JVD, No Murmur, Normal Peripheral Pulses Gastrointestinal: Normal Bowel Sounds, No Organomegaly, No Pulsatile Mass, Non Tender, Soft Extremity: Normal Capillary Refill, Normal Inspection, Normal Range of Motion, Non Tender, Inflammation (R LE + foot), Pedal Edema (R Foot ), Swelling (R LE + foot) Neurologic/Psychiatric: Alert, Oriented x3, No Motor/Sensory Deficits, Normal 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 Imaging: Reviewed Imaging Films, Reviewed Imaging Report Assessment/Plan Assessment and Plan Assess & Plan/Chief Complaint Cellulitis + Severe Sepsis: - Pneumatic compression + elevation of right leg - IV Ceftriaxone + Vanco: if fever still trends up, switch ceftriaxone to Zosyn - IVF NS 145 mL/hr - NSAIDs for pain relief: acetaminophen 800 mg PO TID PRN Venous stasis/lymphedema: - OT to help patient ambulate - SCD uses UTI: treated with antibiotics for sepsis Anxiety/Depression/Mood Disorder: - Continue home medicine: Bupropion/Xanax/Vraylar Acid-Reflux: - Continue Nexium: 40 mg HS - Low fat diet due to diarrheal issues JEEVAN: - IVF NS 145 mL/hr DVT Prophylaxis: - SubQ Lovenox - SCDs Hypokalemia + hypomagnesmeia: - transfusion IV Clinical Quality Measures DVT/VTE Risk/Contraindication: Risk Factor Score Per Nursin RFS Level Per Nursing on Admit: 3=High MARY ROME MD 04/14/19 1600: Assessment/Plan Assessment and Plan Assess & Plan/Chief Complaint Patient improving. BP has stabilized. Will transfer out of the ICU. Continue on abx. Was febrile overnight but now afebrile. Await c/s still. Diagnosis/Problems Diagnosis/Problems (1) Hypertension (2) UTI (urinary tract infection) (3) Severe sepsis Status: Acute (4) Cellulitis of right lower extremity Status: Acute Supervisory-Addendum Brief Verification & Attestation Participated in pt care: history, MDM, physical Personally performed: exam, history, MDM, supervision of care Care discussed with: Medical Student Procedures: n/a Results interpretation: Verified all documentation Verification and Attestation of Medical Student E/M Service A medical student performed and documented this service in my presence. I reviewed and verified all information documented by the medical student and made modifications to such information, when appropriate. I personally performed the physical exam and medical decision making. Mary Rome, Apr 14, 2019,15:59 [facility] RODRIGUEZ [facility] Apr 13, 2019 08:11 MARY ROME MD Apr 14, 2019 16:00
[2019-04-13] MEDS: LACTATED RINGERS 1,000 ML IV SCH ×2 (08:42→20:22)
[2019-04-13] MEDS: PANTOPRAZOLE 40 MG (PROTONIX) TAB PO SCH (08:42)
[2019-04-13] MEDS ORDERED: BUPR300T51 PO (08:57)
[2019-04-13] MEDS ORDERED: PHEN37.53 PO (09:00)
[2019-04-13] MEDS ORDERED: ALPR0.5T7 PO (09:00)
[2019-04-13] MEDS ORDERED: NAPR220T66 PO (09:00)
[2019-04-13] MEDS ORDERED: NF-ESOM40C PO (09:00)
[2019-04-13] MEDS ORDERED: BROM5DRO3 OU (09:02)
[2019-04-13] MEDS ORDERED: PRED5DRO24 OD (09:02)
[2019-04-13] MEDS ORDERED: PRED5DRO24 OS (09:02)
--- NOTE | 2019-04-13 09:04 | NUR ---
WENT OVER THE EXT MED HX WITH THE PATIENT AND SHE VERIFIED HOW SHE TAKES THEM. SHE IS TITRATING OFF HER EYE DROPS CURRENTLY AFTER A PROCEDURE AND WAS ABLE TO TELL ME HOW SHE IS DOING THEM NOW. SHE ALSO STATES SHE TAKES PHENTERMINE DAILY THAT IS NOT SHOWN ON THE EXT MED HX. SHE TAKES 2 ALEVE BID OTC.
--- NOTE | 2019-04-13 10:48 | NUR ---
Report called to SETH Cotres who will assume pt care on arrival to room 429. Tech to transport pt via wheelchair to new room at this time.
--- NOTE | 2019-04-13 11:05 | NUR ---
PT ARRIVED TO ROOM. THIS RN TO RESUME CARE. THIS RN AGREES WITH PREVIOUS RN'S ASSESSMENT.
--- NOTE | 2019-04-13 14:07 | Occ Therapy Progress Note ---
Therapy Progress Note OT order received and chart reviewed. OT educated pt on purpose and benefits of OT, pt reports she feels like she will not have difficulty with ADLs at this time. Pt ambulated to the bathroom to complete toileting without difficulty. Pt states her main issue is her right LE but once it gets better she will be at her PLOF with functional mobility. Pt declines further OT services at this time, due to stating she has no difficulty wtih ADLs. skilled OT services are not indicated at this time due to pt's request, and her performing ADLs without difficulty. Discharge from OT at this time. 1, visit 12:55 GEOVANNI CEJA OT Apr 13, 2019 14:07
--- NOTE | 2019-04-13 16:07 | NUR ---
RD ASSESSMENT PMHx: HTN; GERD; chronic diarrhea PT INTERACTION: Pt was awake and pleasant during nutrition assessment. Pt states current appetite is not good and has been this way for the past 2 days. Note PO intake of 50% x1meal, per chart review. Pt states following a regular diet but avoids pork products. Pt states no issues with chewing/swallowing food. Pt states no recent issues with nausea/vomiting at this time. Pt states some issues with constipation and that her last BM was "either Friday or Friday". Note no BM has been recorded and pt not currently on bowel regimen per chart review. Pt states recent intentional wt loss of 10# x2mon. Note unable to determine recent wt hx, per chart review. Note presence of wounds on RLE, per chart review. ABNORMAL NUTRITION-RELATED LAB VALUES LOW: Na 132; K 3.4; phos 1.4; Mg 1.5; Pro 6.0 HIGH: Est. kcal needs: 3483-8099 kcal | 15-18 kcal/kg Est. Pro needs: 130-152 g Pro | 1.2-1.4 g Pro/kg PES STATEMENT: Inadequate oral intake (NI-2.1) related to loss of appetite | constipation as evidenced by pt interview | PO intake of 50% x1meal Inadequate protein intake (NI-5.6.1) related to increased protein needs as evidenced by presence of wounds (RLE) INTERVENTION: Continue with current diet order of Regular diet. Add Ensure HP to meals TID. Provides 160 kcal and 16 g Pro per serving for perceived benefit to wound healing. Will continue to follow and reassess as pt needs and status change. MONITOR/EVALUATE: PO Intake; Plan of Care; Hydration Status; Weight Status; Lab Values Danay Lomas, MS, RD, LD
[2019-04-13] MEDS: VANCOMYCIN 1500 MG/NS 500 ML IVPB IV SCH ×2 (17:44)
[2019-04-13] MEDS: cefTRIAXone FOR IV USE 1,000 MG in WATER (STERILE) FOR INJECTION 10 ML IV SCH (17:45)
[2019-04-13] MEDS: IBUPROFEN 600 MG (MOTRIN) TAB PO PRN (17:52)
[2019-04-13] MEDS: ENOXAPARIN 40 MG/0.4 ML (LOVENOX) SYR SC SCH (18:52)
[2019-04-14 04:00] VITALS: BP 105/76
[2019-04-14] MEDS: LACTATED RINGERS 1,000 ML IV SCH ×2 (05:14→15:22)
[2019-04-14 06:31] LABS: BASOPHILS % (AUTO) 1 % (0-10); EOSINOPHILS % (AUTO) 0 % (0-10); HEMATOCRIT 35 % (35-52); HEMOGLOBIN 12.1 G/DL (11.5-16.0); LYMPHOCYTES # (AUTO) 0.5 X 10^3 (1.0-4.0); LYMPHOCYTES % (AUTO) 12 % (12-44); MEAN CORPUSCULAR HEMOGLOBIN 32 PG (25-34); MEAN CORPUSCULAR HGB CONC 34 G/DL (32-36); MEAN CORPUSCULAR VOLUME 95 FL (80-99); MEAN PLATELET VOLUME 9.5 FL (7.4-10.4); MONOCYTES # (AUTO) 0.3 X 10^3 (0.0-1.0); MONOCYTES % (AUTO) 8 % (0-12); NEUTROPHILS # (AUTO) 2.9 X 10^3 (1.8-7.8); NEUTROPHILS % (AUTO) 79 % (42-75); PLATELET COUNT 128 10^3/uL (130-400); RED CELL DISTRIBUTION WIDTH 12.5 % (10.0-14.5); WHITE BLOOD COUNT 3.7 10^3/uL (4.3-11.0)
[2019-04-14] MEDS: MAGNESIUM 1 GM/100 ML IVPB 100 ML IV SCH (06:39)
[2019-04-14 07:11] LABS: ALBUMIN 3.6 GM/DL (3.2-4.5); BILIRUBIN,TOTAL 0.4 MG/DL (0.1-1.0); CALCIUM 9.6 MG/DL (8.5-10.1); CREATININE SERUM 1.1 MG/DL (0.60-1.30); MAGNESIUM 2.1 MG/DL (1.6-2.4); PHOSPHORUS 2.3 MG/DL (2.3-4.7); POTASSIUM 3.5 MMOL/L (3.6-5.0); TOTAL PROTEIN 6.8 GM/DL (6.4-8.2)
--- NOTE | 2019-04-14 07:50 | Progress Note - Hospitalist ---
NEHAL RODRIGUEZ [facility] 04/14/19 0750: Subjective HPI/CC On Admission Date Seen by Provider: Apr 14, 2019 Time Seen by Provider: 07:45 CC: Right LE pain and Right foot tightness HPI: Mrs. Vo is a 43 yo WF presenting with R LE pain and R foot tightness. Patient stated that she started to feel different yesterday afternoon at around 5 pm. She states that she had a 'tingling' sensation in her stomach and ended up sleeping the rest of the night. Last night she stated that she had a fever of 101 F and a fever of 102.5 F this morning. She states that she took Tylenol at 7 am and ibuprofen at noon. She noticed that she had developed right foot tightness and R LE pain in her groin and popliteal area. She states that she feels pain upon walking, but that it ceases when she ends up resting. She also states that the tightness is the worst in the evening, relating it to her many knee surgeries. She stated that this swelling has become a problem after undergoing sclerotherapy 8 years ago, and was referred to a lymphedema clinic, but couldn't make it to either [place] or [place]. Patient describes that she has tried compression stockings, but doesn't help the swelling all that much. She denies any trauma to the affected areas. Subjective/Events-last exam Mrs Vo was pleasant and cooperative this morning. She states that she slept relatively well and didn't report any fever/chills/or night sweats. She states that she is able to void, but has yet to stool. She states that here appetite is slowly improving back to normal. She does state that her headache is still present, but feeling better. Patient still has 'tight' feeling of her right foot and pain in her R Groin, which radiates to mid-thigh. She states that she is able to move her foot better this morning and has been elevating it in bed. She states that when she gets up, she feels a 'fluid light' down her leg and discomfort, but resides after being up and moving. Focused Exam Lactate Level 04/12/19 14:10: Lactic Acid Level 1.77 Respiratory: Chest Non Tender, Lungs Clear, Normal Breath Sounds, No Accessory Muscle Use, No Respiratory Distress Cardiovascular: Regular Rate, Rhythm, No Edema, No Gallop, No JVD, No Murmur, Normal Peripheral Pulses Peripheral Pulses: 2+ Femoral (R), 2+ Dorsalis Pedis (R), 2+ Left Dors-Pedis (L), 2+ Radial Pulses (R), 2+ Radial Pulses (L) Skin: normal color, warm/dry Objective Exam Vital Signs Vital Signs Date Time Temp Pulse Resp B/P (MAP) Pulse Ox O2 Delivery O2 Flow Rate FiO2 04/14/19 04:00 36.7 88 20 105/76 (86) 98 Room Air 2.00 Capillary Refill : Less Than 3 SecondsLess Than 3 Seconds General Appearance: No Apparent Distress, WD/WN HEENT: PERRL/EOMI, Pharynx Normal, Moist Mucous Membranes Respiratory: Chest Non Tender, Lungs Clear, Normal Breath Sounds, No Accessory Muscle Use, No Respiratory Distress Cardiovascular: Regular Rate, Rhythm, No Edema, No Gallop, No JVD, No Murmur, Normal Peripheral Pulses Gastrointestinal: Non Tender, Soft Extremity: Normal Capillary Refill, Normal Inspection, Normal Range of Motion, Non Tender, No Calf Tenderness, Inflammation (right foot), Pedal Edema (right foot) Neurologic/Psychiatric: Alert, Oriented x3, No Motor/Sensory Deficits, Normal Mood/Affect, sports fitness and wellness director II-XII Norm as Tested Skin: Normal Color, Warm/Dry Lymphatic: Inguinal Node Tender (R) (Palpable from groin to mid-thigh and tender upon touch ) Results/Procedures Lab Laboratory Tests 04/14/19 06:27 Patient resulted labs reviewed. Imaging: Reviewed Imaging Films, Reviewed Imaging Report Assessment/Plan Assessment and Plan Assess & Plan/Chief Complaint Cellulitis + Severe Sepsis: - Ambulation + elevation of right leg - IV Ceftriaxone + Vanco: continue current dosage - IVF NS 145 mL/hr - NSAIDs for pain relief: acetaminophen 800 mg PO TID PRN Venous stasis/lymphedema: - Ambulation + Manipulation of venous stasis - Monitor Inguinal Nodes on right UTI: treated with antibiotics for sepsis Anxiety/Depression/Mood Disorder: - Continue home medicine: Bupropion/Xanax/Vraylar Acid-Reflux: - Continue Nexium: 40 mg HS - Low fat diet due to diarrheal issues JEEVAN: - IVF NS 145 mL/hr DVT Prophylaxis: - SubQ Lovenox Hypokalemia: borderline low, monitor for now - Oral K if needed Clinical Quality Measures DVT/VTE Risk/Contraindication: Risk Factor Score Per Nursin RFS Level Per Nursing on Admit: 3=High MARY ROME MD 04/14/19 1604: Assessment/Plan Assessment and Plan Assess & Plan/Chief Complaint Erythema improving in leg. Some blistering of skin from edema. Will DC IVF as oral intake improved and creatinine improved. Was febrile this AM but trended down. Tmax lower than yesterday. E coli in urine is pansensitive so will contin ue current antibiotic regimen. Surgery consulted for lymphangitis. I called and discussed case with Dr Gutiérrez. Suggested wrapping leg to help with edema. Diagnosis/Problems Diagnosis/Problems (1) Severe sepsis Status: Acute (2) Cellulitis of right lower extremity Status: Acute (3) UTI (urinary tract infection) (4) Hypertension Supervisory-Addendum Brief Verification & Attestation Participated in pt care: history, MDM, physical Personally performed: exam, history, MDM, supervision of care Care discussed with: Medical Student Procedures: n/a Results interpretation: Verified all documentation Verification and Attestation of Medical Student E/M Service A medical student performed and documented this service in my presence. I reviewed and verified all information documented by the medical student and made modifications to such information, when appropriate. I personally performed the physical exam and medical decision making. Mary Rome, Apr 14, 2019,16:03 NEHAL RODRIGUEZ [facility] Apr 14, 2019 07:50 MARY ROME MD Apr 14, 2019 16:04
--- NOTE | 2019-04-14 07:51 | Pulmonary Progress Note ---
Subjective Date Seen by a Provider: Apr 14, 2019 Time Seen by a Provider: 07:50 Subjective/Events-last exam PT is doing well from pulmonary/ICU standpoint. Sepsis Event Evaluation Height, Weight, BMI Height: 5'9.00" Weight: 221lbs. 0.0oz. [id number]; 35.00 BMI Method:Stated Focused Exam Lactate Level 04/12/19 14:10: Lactic Acid Level 1.77 Exam Exam Vital Signs Date Time Temp Pulse Resp B/P (MAP) Pulse Ox O2 Delivery O2 Flow Rate FiO2 04/14/19 04:00 36.7 88 20 105/76 (86) 98 Room Air 2.00 04/13/19 23:18 36.7 95 16 110/76 (87) 98 Room Air 04/13/19 20:51 36.7 04/13/19 20:21 37.4 04/13/19 19:16 37.4 108 20 98/58 (71) 95 Room Air 04/13/19 15:38 37.7 103 20 113/73 (86) 98 Room Air 04/13/19 08:00 94 Room Air 04/13/19 08:00 105 42 115/69 (84) 95 Nasal Cannula 2.00 04/13/19 08:00 36.1 I & O 04/14/19 07:00 Intake Total 2900 ml Output Total 2800 ml Balance 100 ml Height & Weight Height: 5'9.00" Weight: 221lbs. 0.0oz. [id number]; 35.00 BMI Method:Stated General Appearance: No Apparent Distress, Anxious HEENT: PERRL/EOMI, Pharynx Normal Neck: Non Tender, Supple Respiratory: Chest Non Tender, Lungs Clear, Normal Breath Sounds, No Accessory Muscle Use, No Respiratory Distress Cardiovascular: Regular Rate, Rhythm, No Edema, No Gallop, No JVD, No Murmur, Normal Peripheral Pulses Capillary Refill: Less Than 3 Seconds Peripheral Pulses: 2+ Carotid (R), 2+ Carotid (L), 2+ Dorsalis Pedis (R), 2+ Left Dors-Pedis (L), 2+ Radial Pulses (R), 2+ Radial Pulses (L) Extremity: Normal Capillary Refill, Normal Inspection, Normal Range of Motion, Non Tender, Inflammation (R LE + foot), Pedal Edema (R Foot ), Swelling (R LE + foot) Neurologic/Psychiatric: Alert, Oriented x3, No Motor/Sensory Deficits, Normal Mood/Affect, tong carrier II-XII Norm as Tested Skin: Normal Color, Warm/Dry, Erythema (R LE + foot ), Other (Heat upon touch of foot) Lymphatic: No Adenopathy Results Lab Laboratory Tests 04/12/19 13:30 04/13/19 04:03 04/14/19 06:27 Assessment/Plan Assessment/Plan Severe Sepsis -improving -Vanco and Rocephin -Ramos cultures pending JEEVAN -IVF UTI I am going to sign off. Please call with any questions or concerns. ROSALVA DELCID DO Apr 14, 2019 07:51
[2019-04-14 08:30] VITALS: BP 115/60
[2019-04-14] MEDS: PANTOPRAZOLE 40 MG (PROTONIX) TAB PO SCH (08:34)
[2019-04-14] MEDS: IBUPROFEN 600 MG (MOTRIN) TAB PO PRN ×2 (08:41→22:21)
[2019-04-14] MEDS: ACETAMINOPHEN 325 MG TABLET PO PRN (10:05)
[2019-04-14 12:00] VITALS: BP 118/62
--- NOTE | 2019-04-14 14:45 | CONSULTATION REPORT ---
DATE OF SERVICE: 04/14/2019 ADMITTING PHYSICIAN: Dr. Rome. HISTORY OF PRESENT ILLNESS: The patient is a 43-year-old female who presented with pain and swelling in the right lower extremity and foot. She also reported some edema and felt a tightness in the popliteal region as well as the foot. She was found to have lymphedema as well as cellulitis. She also does have a history of varicose veins, undergoing sclerotherapy approximately 8 years ago. She was started on antibiotics and some of the redness and swelling have resolved; however, there are persistent areas. PAST MEDICAL HISTORY: Chronic lower extremity edema, hypertension, gastroesophageal reflux disease, degenerative joint disease, anxiety, depression. PAST SURGICAL HISTORY: Laparoscopic cholecystectomy, hysterectomy, multiple knee arthroscopies, tonsillectomy, tubal ligation. ALLERGIES: ADHESIVE TAPE. MEDICATIONS: Alprazolam 0.5 mg b.i.d. p.r.n., bupropion 100 mg daily, cariprazine 3 mg daily, azilsartan/chlorthalidone 1 daily. SOCIAL HISTORY: Previous smoker, social alcohol. FAMILY HISTORY: Noncontributory. VITAL SIGNS: Temperature 38.4, blood pressure 115/60, pulse 105, respiratory rate 20, pulse ox 94% on room air. REVIEW OF SYSTEMS: Well-nourished female currently in no acute distress. She is not experiencing any shortness of breath or difficulty breathing. No chest pain, palpitations, diaphoresis. No nausea, vomiting. No diarrhea or constipation. No fever, chills. No recent inadvertent weight loss. All other review of systems negative. PHYSICAL EXAMINATION: CHEST: Clear. Few scattered rales bilaterally. HEART: Regular, no murmurs. EXTREMITIES: +1/3 bilateral lower extremity edema. There is some swelling and redness and cellulitis along the foot. There is no fluctuance to indicate any abscess. Palpable distal pulses bilaterally. HEENT: No scleral icterus. NECK: No cervical lymphadenopathy. ABDOMEN: Soft, nontender, nondistended. SKIN: Warm, dry. LABORATORY DATA: WBC 3.7, hemoglobin 12.1, hematocrit 35, BUN 10, creatinine 1.10. ASSESSMENT AND PLAN: A 43-year-old female with cellulitis of the right foot and lower extremity. She is currently on antibiotics and this has improved and there were no signs of fluctuance; however, we will continue to monitor for any developing abscess formation that may require incision and drainage. Job ID: [id number] DocumentID: [id number] Dictated Date: 04/14/2019 12:04:49 Eligibility Analyst Date: 04/14/2019 14:44:22 Dictated By: EZIO HARRELL MD
[2019-04-14 16:00] VITALS: BP 99/77
[2019-04-14] MEDS: cefTRIAXone FOR IV USE 1,000 MG in WATER (STERILE) FOR INJECTION 10 ML IV SCH (17:51)
[2019-04-14] MEDS: ENOXAPARIN 40 MG/0.4 ML (LOVENOX) SYR SC SCH (17:51)
[2019-04-14] MEDS: VANCOMYCIN 1500 MG/NS 500 ML IVPB IV SCH ×2 (17:51)
[2019-04-14 20:00] VITALS: BP 112/85
[2019-04-15] VITALS: BP 111/74
[2019-04-15] MEDS: IBUPROFEN 600 MG (MOTRIN) TAB PO PRN (04:29)
[2019-04-15 04:57] LABS: BASOPHILS % (AUTO) 0 % (0-10); EOSINOPHILS % (AUTO) 0 % (0-10); HEMATOCRIT 30 % (35-52); HEMOGLOBIN 10.2 G/DL (11.5-16.0); LYMPHOCYTES # (AUTO) 0.8 X 10^3 (1.0-4.0); LYMPHOCYTES % (AUTO) 19 % (12-44); MEAN CORPUSCULAR HEMOGLOBIN 32 PG (25-34); MEAN CORPUSCULAR HGB CONC 34 G/DL (32-36); MEAN CORPUSCULAR VOLUME 94 FL (80-99); MEAN PLATELET VOLUME 9.5 FL (7.4-10.4); MONOCYTES # (AUTO) 0.5 X 10^3 (0.0-1.0); MONOCYTES % (AUTO) 12 % (0-12); NEUTROPHILS # (AUTO) 2.7 X 10^3 (1.8-7.8); NEUTROPHILS % (AUTO) 69 % (42-75); PLATELET COUNT 152 10^3/uL (130-400); RED CELL DISTRIBUTION WIDTH 12.2 % (10.0-14.5)
[2019-04-15 05:22] LABS: ALBUMIN 3.1 GM/DL (3.2-4.5); BILIRUBIN,TOTAL 0.3 MG/DL (0.1-1.0); CALCIUM 9.1 MG/DL (8.5-10.1); CREATININE SERUM 1.04 MG/DL (0.60-1.30); MAGNESIUM 2.1 MG/DL (1.6-2.4); PHOSPHORUS 3.4 MG/DL (2.3-4.7); POTASSIUM 3.2 MMOL/L (3.6-5.0)
[2019-04-15] MEDS: MAGNESIUM 1 GM/100 ML IVPB 100 ML IV SCH (05:43)
[2019-04-15 08:00] VITALS: BP 99/63
--- NOTE | 2019-04-15 08:01 | Diagnostic Imaging Report ---
INDICATION: Dyspnea COMPARISON STUDY: Chest from 2 days ago. FINDINGS: Frontal view of the chest demonstrates the lungs to be clear. The heart, mediastinum, pulmonary vascularity, and visualized bony thorax are normal. IMPRESSION: Normal chest. Dictated by: Dictated on workstation # [id number]
[2019-04-15] MEDS: PANTOPRAZOLE 40 MG (PROTONIX) TAB PO SCH (09:02)
--- NOTE | 2019-04-15 10:19 | Occ Therapy Progress Note ---
Therapy Progress Note Pt visit to discuss lymphedema management. Pt educated on cellulitis risks and causes. Pt educated on importance of elevation within acute stay and importance of continued compression (mmHg/ garment options discussed) after hospitalization to decrease cellulitis reoccurrence. Pt states she had worn compressions and created swelling above area of compression garment. Pt educated on option of panty hose/ light compression that continues to abdomen and if continuation of edema can receive order for lymphedema management within outpatient clinic. Pt states she will buy compression socks of correct mmHg and plans to continue monitoring to reduce cellulitis reoccurrence. All questions answered. OLESYA SWEENEY OTR Apr 15, 2019 10:19
--- NOTE | 2019-04-15 10:27 | Progress Note - Hospitalist ---
Subjective HPI/CC On Admission Date Seen by Provider: Apr 15, 2019 Time Seen by Provider: 10:20 CC: Right LE pain and Right foot tightness HPI: Mrs. Vo is a 43 yo WF presenting with R LE pain and R foot tightness. Patient stated that she started to feel different yesterday afternoon at around 5 pm. She states that she had a 'tingling' sensation in her stomach and ended up sleeping the rest of the night. Last night she stated that she had a fever of 101 F and a fever of 102.5 F this morning. She states that she took Tylenol at 7 am and ibuprofen at noon. She noticed that she had developed right foot tightness and R LE pain in her groin and popliteal area. She states that she feels pain upon walking, but that it ceases when she ends up resting. She also states that the tightness is the worst in the evening, relating it to her many knee surgeries. She stated that this swelling has become a problem after undergoing sclerotherapy 8 years ago, and was referred to a lymphedema clinic, but couldn't make it to either [place] or [place]. Patient describes that she has tried compression stockings, but doesn't help the swelling all that much. She denies any trauma to the affected areas. Subjective/Events-last exam Pt reports feeling better today. No new complaints. No fever overnight. Unwrapped leg and erythema and edema much improved. Focused Exam Lactate Level 04/12/19 14:10: Lactic Acid Level 1.77 Objective Exam Vital Signs Vital Signs Date Time Temp Pulse Resp B/P (MAP) Pulse Ox O2 Delivery O2 Flow Rate FiO2 04/15/19 08:00 98 Room Air 2.00 04/15/19 08:00 35.6 83 18 99/63 (75) Capillary Refill : Less Than 3 SecondsLess Than 3 Seconds General Appearance: No Apparent Distress, WD/WN Cardiovascular: Regular Rate, Rhythm, No Murmur Gastrointestinal: Normal Bowel Sounds, Non Tender, Soft Extremity: Other (RLE: erythema well within demarcation and edema improved) Neurologic/Psychiatric: Alert, Oriented x3 Results/Procedures Lab Laboratory Tests 04/15/19 04:50 Patient resulted labs reviewed. Imaging: Reviewed Imaging Films, Reviewed Imaging Report Assessment/Plan Assessment and Plan Assess & Plan/Chief Complaint Cellulitis sepsis component resolved Continue on Vanc and Rocephin Continue wrapping leg Surgery consulted, appreciate recs Anticipate discharge tomorrow HTN BP well controlled, trend Hypokalemia Replace Diagnosis/Problems Diagnosis/Problems (1) Severe sepsis Status: Acute (2) Cellulitis of right lower extremity Status: Acute (3) UTI (urinary tract infection) (4) Hypertension Clinical Quality Measures DVT/VTE Risk/Contraindication: Risk Factor Score Per Nursin RFS Level Per Nursing on Admit: 3=High MARY VÁZQUEZ MD Apr 15, 2019 10:27
[2019-04-15] MEDS ORDERED: VANCOMYCIN INJECTION 0.1 MG in NS (IVPB) 250 ML IV SCH (10:30)
[2019-04-15] MEDS ORDERED: KCL 20 MEQ TAB (K-DUR) PO NR (10:45)
[2019-04-15] MEDS: VANCOMYCIN 1500 MG/NS 500 ML IVPB IV SCH ×4 (10:49→22:47)
[2019-04-15] MEDS: KETOROLAC 15 MG/ML VIAL IVP PRN ×3 (10:49→23:43)
[2019-04-15 12:00] VITALS: BP 115/81
--- NOTE | 2019-04-15 15:05 | Progress Note ---
Subjective Date Seen by a Provider: Apr 15, 2019 Time Seen by a Provider: 14:50 Subjective/Events-last exam Patient seen with Dr. Gutiérrez. Patient reports doing ok. Does have right lower extremity pain when getting up and walking. Denies any fever/chills. No N/V. Tolerating diet. Objective Exam Vital Signs Date Time Temp Pulse Resp B/P (MAP) Pulse Ox O2 Delivery O2 Flow Rate FiO2 04/15/19 12:00 36.1 92 16 115/81 (92) 99 Room Air 04/15/19 08:00 98 Room Air 2.00 04/15/19 08:00 35.6 83 18 99/63 (75) 98 Room Air 04/15/19 04:00 36.4 04/15/19 00:00 37.7 101 16 111/74 (86) 98 Room Air 04/14/19 20:00 36.2 99 18 112/85 (94) 100 Room Air 04/14/19 19:15 Room Air 04/14/19 16:00 36.4 91 18 99/77 (84) 96 Room Air I & O 04/15/19 07:00 Intake Total 4235 ml Balance 4235 ml Capillary Refill : Less Than 3 SecondsLess Than 3 Seconds General Appearance: No Apparent Distress, WD/WN Neck: Full Range of Motion, Normal Inspection, Supple Respiratory: Normal Breath Sounds, No Accessory Muscle Use, No Respiratory Distress Cardiovascular: Regular Rate, Rhythm, No Murmur Gastrointestinal: normal bowel sounds, non tender, soft Extremity: Normal Capillary Refill, Normal Range of Motion, Other (1+ RLE edema with erythema mostly of the right foot. No fluctence noted to indicate any abscess.) Neurologic/Psychiatric: Alert, Oriented x3 Skin: Normal Color, Warm/Dry Results Lab Laboratory Tests 04/15/19 04:50: White Blood Count 4.0L, Red Blood Count 3.18L, Hemoglobin 10.2L, Hematocrit 30L, Mean Corpuscular Volume 94, Mean Corpuscular Hemoglobin 32, Mean Corpuscular Hemoglobin Concent 34, Red Cell Distribution Width 12.2, Platelet Count 152, Mean Platelet Volume 9.5, Neutrophils (%) (Auto) 69, Lymphocytes (%) (Auto) 19, Monocytes (%) (Auto) 12, Eosinophils (%) (Auto) 0, Basophils (%) (Auto) 0, Neutrophils # (Auto) 2.7, Lymphocytes # (Auto) 0.8L, Monocytes # (Auto) 0.5, Eosinophils # (Auto) 0.0, Basophils # (Auto) 0.0, Sodium Level 134L, Potassium Level 3.2L, Chloride Level 101, Carbon Dioxide Level 23, Anion Gap 10, Blood Urea Nitrogen 10, Creatinine 1.04, Estimat Glomerular Filtration Rate 57, BUN/Creatinine Ratio 10, Glucose Level 120H, Calcium Level 9.1, Corrected Calcium 9.8, Phosphorus Level 3.4, Magnesium Level 2.1, Total Bilirubin 0.3, Aspartate Amino Transf (AST/SGOT) 18, Alanine Aminotransferase (ALT/SGPT) 20, Alkaline Phosphatase 87, Total Protein 6.0L, Albumin 3.1L Microbiology 04/12/19 MRSA Screen - Final, Complete MRSA not isolated 04/12/19 Blood Culture - Preliminary, Resulted No growth 04/12/19 Urine Culture - Final, Complete Escherichia coli Assessment/Plan Assessment/Plan Assess & Plan/Chief Complaint A 43-year-old female with cellulitis of the right foot and lower extremity. VSS WBC 10.2 Erythema improving, No abscess noted. Continue with IV abx and continue to monitor for any abscess formation. Clinical Quality Measures DVT/VTE Risk/Contraindication: Risk Factor Score Per Nursin RFS Level Per Nursing on Admit: 3=SAMM Anderson APRN Apr 15, 2019 15:05
[2019-04-15 15:23] VITALS: BP 135/84
[2019-04-15] MEDS: cefTRIAXone FOR IV USE 1,000 MG in WATER (STERILE) FOR INJECTION 10 ML IV SCH (16:40)
[2019-04-15] MEDS ORDERED: VANCOMYCIN 1500 MG/NS 500 ML IVPB IV SCH ×2 (17:00)
[2019-04-15] MEDS: ENOXAPARIN 40 MG/0.4 ML (LOVENOX) SYR SC SCH (17:58)
[2019-04-15 19:48] VITALS: BP 118/77
[2019-04-15 23:28] VITALS: BP 132/88
[2019-04-16] MEDS: MAGNESIUM 1 GM/100 ML IVPB 100 ML IV SCH (05:32)
--- NOTE | 2019-04-16 06:29 | Discharge Inst-Simple/Standard ---
Discharge Inst-Standard Discharge Medications New, Converted or Re-Newed RX: Transmitted to Pharmacy Patient Instructions/Follow Up Plan of Care/Instructions/FU: Please continue to take your medications as written. Please follow up with your primary care doctor next week to follow up this hospital stay. I have put in a referral for evaluation at the [facility]hedema [facility] as well. Activity as Tolerated: Yes Discharge Diet: No Restrictions Return to The Hospital For: Fever, chills, chest pain, shortness of breath, worsening pain, numbness in your leg, or if you feel you are getting worse. MARY VÁZQUEZ MD Apr 16, 2019 06:29
[2019-04-16 07:51] VITALS: BP 130/82
[2019-04-16] MEDS: PANTOPRAZOLE 40 MG (PROTONIX) TAB PO SCH (08:58)
[2019-04-16] MEDS ORDERED: buPROPion SR 150 MG (WELLBUTRIN SR) TAB PO SCH (09:00)
[2019-04-16] MEDS ORDERED: IBUPROFEN 600 MG (MOTRIN) TAB PO SCH (12:00)
[2019-04-16] MEDS ORDERED: SULF1TAB35 PO (15:03)
[2019-04-16] MEDS ORDERED: CEPH-507 PO (15:03)
--- NOTE | 2019-04-16 15:07 | Discharge Summary ---
NEHAL RODRIGUEZ [facility] 04/16/19 1507: Diagnosis/Chief Complaint Date of Admission Apr 12, 2019 at 14:51 Date of Discharge Apr 16, 2013 Discharge Date: Apr 16, 2019 Discharge Time: 16:00 Admission Diagnosis Cellulitis + Lymphedema Primary Care Manny Lee MD Discharge Diagnosis Cellulitis + UTI + Sepsis (1) Severe sepsis Status: Acute (2) Cellulitis of right lower extremity Status: Acute (3) UTI (urinary tract infection) Status: Acute (4) Hypertension Status: Chronic Discharge Summary Discharge Physical Exam Allergies: Coded Allergies: adhesive tape (Verified Allergy, Unknown, Hives, 03/16/19) Vitals & I&Os Vital Signs Date Time Temp Pulse Resp B/P (MAP) Pulse Ox O2 Delivery O2 Flow Rate FiO2 04/16/19 08:00 Room Air 04/16/19 07:51 37.2 102 18 130/82 (98) 94 04/15/19 08:00 2.00 General Appearance: WD/WN, Mild Distress HEENT: Pharynx Normal, Moist Mucous Membranes Respiratory: Chest Non Tender, Lungs Clear, Normal Breath Sounds, No Accessory Muscle Use, No Respiratory Distress Cardiovascular: Regular Rate, Rhythm, No Edema, No Gallop, No JVD, No Murmur, Normal Peripheral Pulses Gastrointestinal: Normal Bowel Sounds, No Organomegaly, No Pulsatile Mass, Non Tender, Soft Extremity: Inflammation, Pedal Edema, Swelling Skin: Normal Color, Warm/Dry Neurologic/Psychiatric: Alert, Oriented x3, No Motor/Sensory Deficits, Normal Mood/Affect, inspector advanced composite II-XII Norm as Tested Hospital Course Was the Problem List Reviewed?: Yes Mrs. Vo came in initially for cellulitis. It was later found that she had a UTI and was septic. She was then started on IV Rocephin and IV vancomycin. Her foot was then later wrap in an yuki bandage and elevated it to help with the lymphedema she chronically suffers from and swelling. Over her hospital stay, she has had a headache/migraine that has been controlled via ibuprofen. She is now has a marked reduction in inflammation and swelling in her R. LE and foot, she is able to move her toes and ambulate with relative ease. She will be sent out with oral Keflex BID 500 mg PO and Bactrim. She will follow up with a PCP of her choice 1-2 weeks post discharge. Labs (last 24 hrs) Microbiology 04/12/19 MRSA Screen - Final, Complete MRSA not isolated 04/12/19 Blood Culture - Preliminary, Resulted No growth 04/12/19 Urine Culture - Final, Complete Escherichia coli Patient resulted labs reviewed. Imaging: Reviewed Imaging Films, Reviewed Imaging Report Discussion & Recommendations Discharge Planning: >30 minutes discharge planning 1. Keflex 500 mg BID PO + Bactrim 80 mg TMP/400mg SMX 2. Elevate foot and keep yuki bandages on R LE 3. Order compression socks 4. Follow up with PCP in 1-2 weeks 5. If condition worsens again, go to ER for follow up 6. Ibuprofen 800 mg PO PRN for ARITA and foot pain. Discharge Home Medications: Active Scripts Active Reported Bromsite (Bromfenac Sodium) 5 Ml Drops 1 Drop OU DAILY Prednisolone Acet 1% Eye Drop (Prednisolone Acetate/Pf) 5 Ml Drops.susp 1 Drop OD BID Prednisolone Acet 1% Eye Drop (Prednisolone Acetate/Pf) 5 Ml Drops.susp 1 Drop OS DAILY Phentermine HCl 37.5 Mg Tablet 37.5 Mg PO DAILY Aleve (Naproxen Sodium) 220 Mg Tablet 440 Mg PO BID Nexium (Esomeprazole Magnesium) 40 Mg Cap 40 Mg PO DAILY Alprazolam 0.5 Mg Tablet 0.5 Mg PO HS Bupropion Xl (Bupropion HCl) 300 Mg Tab.er.24h 300 Mg PO DAILY Xanax (Alprazolam) 0.5 Mg Tablet 0.5 Mg PO BID PRN Vraylar (Cariprazine Hydrochloride) 3 Mg Capsule 3 Mg PO DAILY Edarbyclor 40-12.5 mg Tablet (Azilsartan Med/Chlorthalidone) 1 Each Tablet 1 Tab PO HS Instructions to patient/family Please see electronic discharge instructions given to patient. Clinical Quality Measures DVT/VTE Risk/Contraindication: Risk Factor Score Per Nursin RFS Level Per Nursing on Admit: 3=High MARY ROME MD 04/16/19 1707: Discharge Summary Discharge Physical Exam Allergies: Coded Allergies: adhesive tape (Verified Allergy, Unknown, Hives, 03/16/19) Supervisory-Addendum Brief Verification & Attestation Participated in pt care: history, MDM, physical Personally performed: exam, history, MDM, supervision of care Care discussed with: Medical Student Procedures: n/a Results interpretation: Verified all documentation Verification and Attestation of Medical Student E/M Service A medical student performed and documented this service in my presence. I reviewed and verified all information documented by the medical student and made modifications to such information, when appropriate. I personally performed the physical exam and medical decision making. Mary Rome, Apr 16, 2019,17:06 NEHAL RODRIGUEZ [facility] Apr 16, 2019 15:07 MARY ROME MD Apr 16, 2019 17:07
[2019-04-16] MEDS: cefTRIAXone FOR IV USE 1,000 MG in WATER (STERILE) FOR INJECTION 10 ML IV SCH (15:33)
[2019-04-16] MEDS ORDERED: AZILSARTAN MED PO SCH (21:00)
[2019-04-16] MEDS ORDERED: [UNRECOGNIZED DRUG - OTHER] PO SCH (21:00)
[2019-04-16] MEDS ORDERED: CHLORTHALIDONE PO SCH (21:00)
== END 2019-04-16 17:19 | disposition home or self-care (01) | DRG 872 ==
LOC: EDUNIT# 12:25 → ER 12:25 → ICU 14:51 → 4TH 04-13 11:00
PROVIDERS: ADMIT Family Medicine; ATTEND Family Medicine
DX: A41.9 Sepsis, unspecified organism (principal); R65.20 Severe sepsis without septic shock; L03.115 Cellulitis of right lower limb; N39.0 Urinary tract infection, site not specified; B96.20 Unspecified Escherichia coli [E. coli] as the cause of diseases classified elsewhere; N17.9 Acute kidney failure, unspecified; K21.9 Gastro-esophageal reflux disease without esophagitis; F41.9 Anxiety disorder, unspecified; F32.9 Major depressive disorder, single episode, unspecified; F43.9 Reaction to severe stress, unspecified; I87.8 Other specified disorders of veins; I10 Essential (primary) hypertension; E87.6 Hypokalemia; E83.42 Hypomagnesemia; Z87.891 Personal history of nicotine dependence; M54.9 Dorsalgia, unspecified; G89.29 Other chronic pain; Z98.51 Tubal ligation status; Z90.710 Acquired absence of both cervix and uterus; M19.90 Unspecified osteoarthritis, unspecified site; K52.9 Noninfective gastroenteritis and colitis, unspecified
CPT/HCPCS: 36415; 71045; 80053; 81000; 83605; 83735; 84100; 85007; 85025; 85027; 85610; 85730; 87040; 87077; 87081; 87088; 87186; 96361; 96365; 96375

== ENCOUNTER → 2019-04-21 | Outpatient (CLI) | payer OTHER ==
[~2019-04-21] MED LIST changes: +ALPR0.5T7 PO; +BROM5DRO3 OU; +BUPR300T51 PO; +CEPH-507 PO; +NAPR220T66 PO; +PHEN37.53 PO; +PRED5DRO24 OD; +PRED5DRO24 OS; +SULF1TAB35 PO
== END ==
LOC: WOUNDCARE 13:54
PROVIDERS: ATTEND Orthopaedic Surgery Hand Surgery
DX: S91.101A Unspecified open wound of right great toe without damage to nail, initial encounter (principal); L03.115 Cellulitis of right lower limb; I89.0 Lymphedema, not elsewhere classified; S80.821A Blister (nonthermal), right lower leg, initial encounter; X58.XXXA Exposure to other specified factors, initial encounter
CPT/HCPCS: 87070; 87205; 97597

== ENCOUNTER → 2019-04-27 | Outpatient (CLI) | payer OTHER ==
[~2019-04-27] MED LIST changes: -BUPR300T51 PO; +BUPR300T98 PO
== END ==
LOC: WOUNDCARE 15:37
PROVIDERS: ATTEND Orthopaedic Surgery Hand Surgery
DX: S91.101A Unspecified open wound of right great toe without damage to nail, initial encounter (principal); L03.115 Cellulitis of right lower limb; I89.0 Lymphedema, not elsewhere classified; S80.821A Blister (nonthermal), right lower leg, initial encounter; S81.801A Unspecified open wound, right lower leg, initial encounter
CPT/HCPCS: 99213

== ENCOUNTER → 2019-05-04 | Outpatient (CLI) | payer OTHER | LOC: WOUNDCARE 15:28 | PROVIDERS: ATTEND Surgery | DX: I89.0 Lymphedema, not elsewhere classified (principal); S80.821A Blister (nonthermal), right lower leg, initial encounter; S81.801A Unspecified open wound, right lower leg, initial encounter; I96 Gangrene, not elsewhere classified | CPT/HCPCS: 99212 ==

== ENCOUNTER → 2019-05-11 | Outpatient (CLI) | payer OTHER | LOC: WOUNDCARE 15:28 | PROVIDERS: ATTEND Surgery | DX: S81.801A Unspecified open wound, right lower leg, initial encounter (principal); S80.821A Blister (nonthermal), right lower leg, initial encounter; I89.0 Lymphedema, not elsewhere classified | CPT/HCPCS: 99212 ==

== ENCOUNTER 2019-05-18 15:45 | Outpatient (RCR) | payer OTHER | END 2019-06-23 12:31 | disposition home or self-care (01) | PROVIDERS: ATTEND Surgery | DX: I89.0 Lymphedema, not elsewhere classified (principal) ==

== ENCOUNTER 2019-07-20 15:11 | Outpatient (RCR) | payer OTHER | END 2019-07-20 16:00 | disposition home or self-care (01) | PROVIDERS: ATTEND Phlebology | DX: I89.0 Lymphedema, not elsewhere classified (principal); I10 Essential (primary) hypertension; Z86.19 Personal history of other infectious and parasitic diseases; Z98.890 Other specified postprocedural states ==

== ENCOUNTER → 2019-10-27 | Outpatient (CLI) | payer OTHER | LOC: CARD 14:00 | PROVIDERS: ATTEND Internal Medicine Interventional Cardiology | DX: I34.0 Nonrheumatic mitral (valve) insufficiency (principal); R60.0 Localized edema; E66.9 Obesity, unspecified | CPT/HCPCS: 93306 ==

== ENCOUNTER 2020-01-11 08:21 | Emergency (ER) | payer OTHER ==
[~2020-01-11] VITALS: Ht 172 cm; Wt 113.0 kg
[~2020-01-11 08:21] MED LIST changes: +AMLO-250 PO; -AMLO5TAB9 PO; -ENAL20TA PO; +ENAL20TA16 PO
[2020-01-11] MEDS ORDERED: ORPHENADRINE 60 MG/2 ML (NORFLEX) AMP (ED ONLY) IV STA (08:38)
[2020-01-11] MEDS ORDERED: fentaNYL INJECTION 100 MCG/2 ML AMP IVP STA ×2 (08:38→13:01)
--- NOTE | 2020-01-11 08:59 | ED Back Pain ---
General Chief Complaint: Back Problems Stated Complaint: BACK PAIN Nursing Triage Note: PT TO ROOM 5 PER W/C PT CO OF BACK POPPING THIS AM WHEN REACHED TO ANSWER PHONE RATES PAIN 12/10. PT MOVES VERY SLOWLY AND CAREFULLY D/T PAIN. STATES HAS HAD 3 PREVIOUS BACK SURGERIES Nursing Sepsis Screen: No Definite Risk Source of Information: Patient Exam Limitations: No Limitations History of Present Illness Date Seen by Provider: Jan 11, 2020 Time Seen by Provider: 08:30 Initial Comments Here with report of mid low back pain that has been going on for a week but worsened significantly this morning. She states she was sitting in bed and turned to turn off the alarm on her phone and felt her back pop. Started having much more significant pain after that. States pain radiates to the left buttock. Has had 3 previous surgeries on her back including fusion and discectomy. States the last time that she had it start like this and then it worsened significantly and ultimately she was in the hospital and was unable to walk. That required a surgery to clear. Denies recent injuries otherwise. Denies bowel or bladder incontinence or numbness between her legs. She was able to stand on own accord and transfer to bed albeit very slowed and in obvious pain. 1110: Patient did receive ketamine 12.5 mg IV but she was getting too woozy with that so it was stopped before the full 25 mg dose was given. This did help with her pain though. We have ordered MRI of the lumbar spine as we did have a slot available. Monitor patient. 1300: MRI complete. She does have tiny bulges in the upper lumbar region but no significant stenosis. Overall doing better but her pain is returning. Fentanyl 50 mcg IV as well as Percocet 1 tab p.o. given. Discharged home with return precautions. Patient verbalized understanding of instructions and agreement with plan. Location: Lumbar Spine, Paraspinous Muscles Timing/Duration: 3-4 Days, Getting Worse Severity: Moderate Pain/Injury Location: Back Radiation: Buttocks (Left-sided) Method of Injury: Unknown Modifying Factors: Improves With Immobilization; Worse With Movement Associated Symptoms: muscle spasms; No fever, No weakness, No numbness in legs/feet, No tingling in legs/feet, No sensory/motor loss; lower back pain; No loss of bladder control, No loss of bowel control Allergies and Home Medications Allergies Coded Allergies: adhesive tape (Verified Allergy, Unknown, Hives, 03/16/19) Home Medications Alprazolam 0.5 Mg Tablet, 0.5 MG PO BID PRN for ANXIETY, (Reported) Alprazolam 0.5 Mg Tablet, 0.5 MG PO HS, (Reported) Azilsartan Med/Chlorthalidone 1 Each Tablet, 1 TAB PO HS, (Reported) Bromfenac Sodium 5 Ml Drops, 1 DROP OU DAILY, (Reported) Bupropion HCl 300 Mg Tab.er.24h, 300 MG PO DAILY, (Reported) Cariprazine Hydrochloride 3 Mg Capsule, 3 MG PO DAILY, (Reported) Cephalexin 500 Mg Capsule, 500 MG PO BID Prescribed by: MARY VÁZQUEZ on 04/16/19 1503 Esomeprazole Magnesium 40 Mg Cap, 40 MG PO DAILY, (Reported) Naproxen Sodium 220 Mg Tablet, 440 MG PO BID, (Reported) Phentermine HCl 37.5 Mg Tablet, 37.5 MG PO DAILY, (Reported) Prednisolone Acetate/Pf 5 Ml Drops.susp, 1 DROP OS DAILY, (Reported) Prednisolone Acetate/Pf 5 Ml Drops.susp, 1 DROP OD BID, (Reported) Sulfamethoxazole/Trimethoprim 1 Each Tablet, 1 EACH PO BID Prescribed by: MARY VÁZQUEZ on 04/16/19 1503 Patient Home Medication List Home Medication List Reviewed: Yes Review of Systems Constitutional: no symptoms reported EENTM: no symptoms reported Respiratory: No cough, No short of breath Cardiovascular: no symptoms reported Gastrointestinal: No nausea, No vomiting Genitourinary: see HPI; No incontinence, No pain Musculoskeletal: back pain, muscle pain Psychiatric/Neurological: See HPI Past Ynugygn-Fecjsc-Iqxrbx Hx Past Med/Social Hx: Reviewed Nursing Past Med/Soc Hx Patient Social History Alcohol Use: Rarely Uses Recreational Drug Use: No Smoking Status: Former Smoker Former Smoker, Quit: Mar 03, 2016 2nd Hand Smoke Exposure: No Recent Foreign Travel: No Contact w/Someone Who Travel: No Recent Infectious Disease Expo: No Recent Hopitalizations: No Physical Abuse: No Sexual Abuse: No Immunizations Up To Date Tetanus Booster (TDap): More than 5yrs PED Vaccines UTD: No Seasonal Allergies Seasonal Allergies: No Past Medical History Surgeries: Yes (WISDOM TEETH, HERNIA X4, COLONOSCOPIES, UPPER GIS) Gallbladder, Hysterectomy, Orthopedic, Tonsillectomy, Tubal Ligation Respiratory: No Currently Using CPAP: No Currently Using BIPAP: No Cardiac: Yes Chronic Edema/Swelling, Hypertension Neurological: Yes 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 Disorders: No Female 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 Disorders: Denies [employer]CH[employer] TECH[employer]IAN History: Hysterectomy Sexually Transmitted Disease: No HIV/AIDS: No Gastrointestinal: Yes Gastroesophageal Reflux, Chronic Diarrhea Musculoskeletal: No (HX BACK SURGERY, NO PAIN NOW) Chronic Back Pain Endocrine: No Loss of Vision: Denies Hearing Impairment: Denies Cancer: No Psychosocial: Yes (TREMENDOUS AMOUNT OF STRESS) Anxiety, Depression Integumentary: No Blood Disorders: No Adverse Reaction/Blood Tranf: No Family Medical History Reviewed Nursing Family Hx No Family History of: AIDS Abdominal aortic aneurysm Myles's disease Alcoholism Alzheimer's disease Aphasia Arthritis Asthma Cancer of mouth Cardiovascular disease Cataracts Colon cancer Completed stroke Congenital disease Congenital heart disease Coronary thrombosis Cystic fibrosis Deafness or hearing loss Dementia Diabetes mellitus Drug abuse Dysphasia Fibrocystic disease of breast Gastroenteritis Glaucoma Headache disorder Hypercholesterolemia Hypertension Infertility Kidney disease Myocardial infarction Neoplasm Not obtainable due to adoption Osteoporosis Parkinson's disease Prostate cancer Psychosocial problem Respiratory disorder Seizure disorder Severe allergy Thyroid disease Tuberculosis Visual disorder Diabetes, Psychiatric Problems, Other Conditions/Hx Physical Exam Vital Signs Vital Signs - First Documented 01/11/20 08:26 Temp 36.3 Pulse 97 Resp 18 B/P (MAP) 150/109 (123) Pulse Ox 97 Capillary Refill : Less Than 3 Seconds Height, Weight, BMI Height: 5'9.00" Weight: 221lbs. 0.0oz. 100.974255sb; 38.00 BMI Method:Stated General Appearance: WD/WN, Moderate Distress HEENT: PERRL/EOMI, Pharynx Normal Neck: Non Tender, Supple Cardiovascular: Regular Rate, Rhythm, No Murmur Respiratory: Lungs Clear, Normal Breath Sounds Gastrointestinal: Non Tender, Soft Back: Muscle Spasm, Other (Tender upper lumbar spine area medial and lateral with muscle spasms noted.) Extremity: Non Tender, No Calf Tenderness Neurologic/Psychiatric: Alert, Oriented x3 Skin: Normal Color, Warm/Dry Progress/Results/Core Measures Results/Orders My Orders Orders - INDU BERGER MD Fentanyl Injection (Sublimaze Injection (01/11/20 08:38) Orphenadrine Inj (Ed Only) (Norflex Inje (01/11/20 08:38) Ed Iv/Invasive Line Start (01/11/20 08:38) Ondansetron Injection (Zofran Injectio (01/11/20 09:30) Ondansetron Injection (Zofran Injectio (01/11/20 09:22) Ketamine Syringe (Ed Only) (Ketamine Syr (01/11/20 09:45) Mri Lumbar Spine W/O Contrast (01/11/20 11:00) Medications Given in ED Current Medications Medications Dose Ordered Sig/Cassius Route Start Time Stop Time Status Last Admin Dose Admin Ketamine HCl 25 mg ONCE ONCE IV 01/11/20 09:45 01/11/20 09:46 DC 01/11/20 09:48 25 MG Ondansetron HCl 8 mg ONCE ONCE IVP 01/11/20 09:30 01/11/20 09:31 DC 01/11/20 09:23 8 MG Vital Signs/I&O 01/11/20 08:26 Temp 36.3 Pulse 97 Resp 18 B/P (MAP) 150/109 (123) Pulse Ox 97 Blood Pressure Mean: 123 Progress Progress Note : Progress Note CT head evaluated. IV, fentanyl 75 mcg IV and Norflex 60 mg IV ordered. I have reviewed previous lumbar MRI film studies from 2013 which did note disease but did have discectomy and fusion that involves L3/L4 L4/L5 and L5/S1. We will see if pain meds help him determine further evaluation from there. 0945: Overall doing better but still in moderate amount of pain. We will try ketamine 25 mg IV slow push and see if that helps some more. I did discuss risk and benefits with the patient and she agreed. Monitor patient. Diagnostic Imaging Diagonstic Imaging: MRI Plain Films/CT/US/NM/MRI: other Comments [facility] [place] NAME: SHELLY MIRZA [facility] REC#: [id number] PT STATUS: REG ER : 1975 PHYSICIAN: INDU BERGER MD ADMIT DATE: 01/11/20/ER Draft Date of Exam:01/11/20 MRI LUMBAR SPINE W/O CONTRAST PROCEDURE: MRI lumbar spine. TECHNIQUE: Multiplanar, multisequence MRI of the lumbar spine was performed without contrast. INDICATION: Severe low back pain. COMPARISON: MRI lumbar spine without contrast 12/21/2013. FINDINGS: There are 5 lumbar-type vertebral bodies for the purposes of this report. Normal alignment. Vertebral body heights are preserved. Again seen are postoperative findings of bilateral roma and pedicle screw fixation at L3-S1 with interbody fusions. There is no pedicle screw on the left at the L3 segment. No abnormal signal in the conus which terminates at L1. Normal morphology of the cauda equina. The visualized paravertebral soft tissues are unremarkable. T12-L1: Tiny central disc extrusion with inferior migration results in no spinal canal or lateral recess narrowing. No neural foraminal narrowing. L1-L2: Normal. L2-L3: Small annular disc bulge results in mild right and moderate left lateral recess narrowing. Mild spinal canal narrowing. Mild bilateral neural foraminal narrowing. L3-L4: No spinal canal, lateral recess or neural foraminal narrowing. L4-L5: No spinal canal or lateral recess narrowing. Disc space height loss results in mild bilateral neural foraminal narrowing. L5-S1: Disc space height loss contributes to mild left neural foraminal narrowing. No spinal canal or lateral recess narrowing. IMPRESSION: 1. Stable bilateral roma and pedicle screw fixation with interbody fusions at L3-S1. 2. Moderate left lateral recess narrowing due to small annular disc bulge at L2-L3. No high-grade neural impingement the lumbar spine. 3. Tiny disc extrusion with inferior migration at T12-L1 results in no neural impingement. 4. No acute osseous findings. Dictated on workstation # [id number] Dict: 01/11/20 1216 Trans: 01/11/20 1233 [facility] [phone] Interpreted by: ANGUS BENAVIDES MD Electronically signed by: Departure Impression Primary Impression: Lumbar radiculopathy Disposition: 01 HOME, SELF-CARE Condition: Stable Departure-Patient Inst. Decision time for Depature: 13:04 Referrals: [facility] (PCP) Primary Care Physician BOOGIE GUERRERO (Family) Primary Care Physician Patient Instructions: Radiculopathy (DC) Add. Discharge Instructions: All discharge instructions reviewed with patient and/or family. Voiced understanding. You need to follow-up with your doctor for recheck and further evaluation and consideration of referral to orthopedic back surgeon for further evaluation as well. A copy of your chart was sent to the clinic including MRI results. Take medication as directed. You should continue Aleve 2 tablets twice daily for the next 3 to 4 days and then as needed. If you are not taking the prescribed oxycodone-containing pain medicine, you may take Tylenol/acetaminophen 1000 mg every 6-8 hours instead. Do not take both at the same time as they both have acetaminophen in them. You may use rxrx-cir-ybeeitd Icy Hot with lidocaine patches, Aspercreme with lidocaine patches, Salonpas with lidocaine patches or similar items to area of concern per package directions. Return for worse pain, weakness, numbness between your legs, difficulty with walking or going to the bathroom or other concerns as needed. Scripts Ondansetron (Ondansetron Odt) 4 Mg Tab.rapdis 4 MG PO Q6H PRN for NAUSEA/VOMITING, #15 TAB 0 Refills Prov: INDU BERGER MD 01/11/20 Oxycodone HCl/Acetaminophen (Oxycodone-Acetaminophen 5-325) 1 Each Tablet 1 EACH PO Q6H PRN for PAIN-MODERATE MDD 6 for 7 Days, #16 TAB 0 Refills Prov: INDU BERGER MD 01/11/20 Prednisone (Prednisone) 20 Mg Tab 40 MG PO DAILY, #14 TAB 0 Refills Prov: INDU BERGER MD 01/11/20 Cyclobenzaprine HCl (Cyclobenzaprine HCl) 10 Mg Tablet 10 MG PO Q8H PRN for SPASMS, #15 TAB 0 Refills Prov: INDU BERGER MD 01/11/20 Work/School Note: Work Release Form Date Seen in the Emergency Department: Jan 11, 2020 Return to Work: Jan 13, 2020 Restrictions: No Restrictions Copy Copies To 1: URVASHI PRATT TIMOTHY D MD Jan 11, 2020 08:59
[2020-01-11] MEDS ORDERED: ONDANSETRON 4 MG/2 ML (SDV) Z0FRAN ONE (09:22)
[2020-01-11] MEDS ORDERED: ONDANSETRON 4 MG/2 ML (SDV) Z0FRAN IVP ONE (09:30)
[2020-01-11] MEDS ORDERED: KETAMINE/NaCl 50 MG/5 ML SYRINGE (ED ONLY) IV ONE (09:45)
--- NOTE | 2020-01-11 10:00 | NUR ---
PT STATES FEELING VERY WEIRD, PAIN GONE, IV KETAMINE TURNED OFF AT 1.25CC INFUSED
--- NOTE | 2020-01-11 12:33 | Diagnostic Imaging Report ---
PROCEDURE: MRI lumbar spine. TECHNIQUE: Multiplanar, multisequence MRI of the lumbar spine was performed without contrast. INDICATION: Severe low back pain. COMPARISON: MRI lumbar spine without contrast 12/21/2013. FINDINGS: There are 5 lumbar-type vertebral bodies for the purposes of this report. Normal alignment. Vertebral body heights are preserved. Again seen are postoperative findings of bilateral roma and pedicle screw fixation at L3-S1 with interbody fusions. There is no pedicle screw on the left at the L3 segment. No abnormal signal in the conus which terminates at L1. Normal morphology of the cauda equina. The visualized paravertebral soft tissues are unremarkable. T12-L1: Tiny central disc extrusion with inferior migration results in no spinal canal or lateral recess narrowing. No neural foraminal narrowing. L1-L2: Normal. L2-L3: Small annular disc bulge results in mild right and moderate left lateral recess narrowing. Mild spinal canal narrowing. Mild bilateral neural foraminal narrowing. L3-L4: No spinal canal, lateral recess or neural foraminal narrowing. L4-L5: No spinal canal or lateral recess narrowing. Disc space height loss results in mild bilateral neural foraminal narrowing. L5-S1: Disc space height loss contributes to mild left neural foraminal narrowing. No spinal canal or lateral recess narrowing. IMPRESSION: 1. Stable bilateral roma and pedicle screw fixation with interbody fusions at L3-S1. 2. Moderate left lateral recess narrowing due to small annular disc bulge at L2-L3. No high-grade neural impingement the lumbar spine. 3. Tiny disc extrusion with inferior migration at T12-L1 results in no neural impingement. 4. No acute osseous findings. Dictated by: Dictated on workstation # [id number]
[2020-01-11] MEDS ORDERED: ONDA4TAB11 PO ×2 (13:09→17:03)
[2020-01-11] MEDS ORDERED: CYCL10TA9 PO ×2 (13:09→17:01)
[2020-01-11] MEDS ORDERED: OXYC-471 PO ×2 (13:09→17:01)
[2020-01-11] MEDS ORDERED: PRD20T PO ×2 (13:09→17:01)
[2020-01-11] MEDS ORDERED: oxyCODONE/APAP 5/325MG (PERCOCET 5) TABLET PO ONE (13:15)
[2020-01-11 13:20] VITALS: BP 143/99
== END 2020-01-11 13:20 | disposition home or self-care (01) ==
LOC: EDUNIT# 08:21 → ER 08:23
DX: M54.16 Radiculopathy, lumbar region (principal); K21.9 Gastro-esophageal reflux disease without esophagitis; F41.9 Anxiety disorder, unspecified; F32.9 Major depressive disorder, single episode, unspecified; I10 Essential (primary) hypertension; Z87.891 Personal history of nicotine dependence; Z79.52 Long term (current) use of systemic steroids
CPT/HCPCS: 72148

== ENCOUNTER → 2020-02-17 | Outpatient (CLI) | payer OTHER ==
[~2020-02-17] MED LIST changes: +ONDA4TAB11 PO; +OXYC-471 PO; +PRD20T PO
--- NOTE | 2020-02-17 20:32 | Diagnostic Imaging Report ---
INDICATION: Routine screening. COMPARISON: No prior mammograms are available for comparison. This is a baseline study. EXAMINATION: 2D and 3D bilateral screening mammography was performed with CAD. 3D tomographic images were obtained and reviewed. The current study was also evaluated with a Computer Aided Detection (CAD) system. FINDINGS: Both breasts are heterogeneously dense, limiting the sensitivity of mammography. No mass or malignant appearing microcalcifications are seen. Axillae are unremarkable. IMPRESSION: No mammographic features suspicious for malignancy are identified. ACR BI-RADS Category 1: Negative. Result letter will be mailed to the patient. Note: At least 10% of breast cancer is not imaged by mammography. Dictated by: Dictated on workstation # [id number]
== END ==
LOC: RAD 10:45
PROVIDERS: ATTEND Obstetrics & Gynecology
DX: Z12.31 Encounter for screening mammogram for malignant neoplasm of breast (principal)
CPT/HCPCS: 77063; 77067

== ENCOUNTER → 2021-02-21 | Outpatient (CLI) | payer OTHER ==
[~2021-02-21] MED LIST changes: +CYCL10TA25 PO; -OXYC-471 PO; +OXYC1TAB11 PO; -PHEN37.53 PO; +PHEN37.58 PO; -SULF1TAB35 PO; +SULF1TAB38 PO
--- NOTE | 2021-02-22 09:21 | Diagnostic Imaging Report ---
INDICATION: Routine screening. Comparison is made with prior mammogram from 02/17/2020. 2-D and 3-D bilateral screening mammography was performed with CAD. Both breasts are heterogeneously dense, limiting the sensitivity of mammography. A circumscribed nodule has developed in the outer aspect of the right breast is approximately 9 cm from the nipple. This projects just above the nipple line on the MLO view. Further evaluation ultrasound is recommended. No other masses are identified. No malignant-appearing microcalcifications are seen. Axillae are unremarkable. IMPRESSION: BI-RADS 0 Right breast density outer aspect of the right breast posterior depth. This likely represents a cyst. Further evaluation with ultrasound is recommended. ACR BI-RADS Category 0: Incomplete. (Needs additional imaging evaluation). Result letter will be mailed to the patient. Note: At least 10% of breast cancer is not imaged by mammography. Dictated by: Dictated on workstation # [id number]
== END ==
LOC: RAD 15:45
PROVIDERS: ATTEND Obstetrics & Gynecology
DX: Z12.31 Encounter for screening mammogram for malignant neoplasm of breast (principal)
CPT/HCPCS: 77063; 77067

== ENCOUNTER → 2021-03-06 | Outpatient (CLI) | payer OTHER ==
--- NOTE | 2021-03-06 14:55 | Diagnostic Imaging Report ---
EXAMINATION: Ultrasound of the right breast limited. INDICATION: Abnormal mammogram. FINDINGS: The screening mammogram performed on 02/21/2021 noted a circumscribed nodule in the lateral aspect of the right breast. The ultrasound examination of this area shows that there is a well-circumscribed 8 x 4 x 7 mm avascular anechoic lesion in the 8-9 o'clock position of the right breast approximately 8 cm from the nipple. This has the appearance of a simple cyst and most likely this corresponds to the finding on the mammogram. There are no solid lesions to suggest malignancy. IMPRESSION: 1. The small nodular asymmetry seen on the mammogram is felt to represent a simple cyst. There is no evidence for malignancy. 2. The patient should have her annual bilateral screening mammogram on schedule in January 2022. ACR BI-RADS Category 2: Benign findings. Dictated by: Dictated on workstation # [id number]
== END ==
LOC: RAD 13:30
PROVIDERS: ATTEND Obstetrics & Gynecology
DX: R92.8 Other abnormal and inconclusive findings on diagnostic imaging of breast (principal)

== ENCOUNTER → 2022-03-12 | Outpatient (CLI) | payer BC ==
--- NOTE | 2022-03-12 14:53 | Diagnostic Imaging Report ---
INDICATION: Routine screening. COMPARISON: 02/21/2021 and 02/17/2020. TECHNIQUE: 2D and 3D bilateral screening mammography was performed with CAD. FINDINGS: Both breasts are heterogeneously dense, limiting the sensitivity of mammography. The parenchymal pattern is stable. No mass or malignant-appearing microcalcifications are seen. There are benign calcifications present. The axillae are unremarkable. IMPRESSION: No mammographic features suspicious for malignancy are identified. ACR BI-RADS Category 2: Benign findings. Result letter will be mailed to the patient. Note: At least 10% of breast cancer is not imaged by mammography. Dictated by: Dictated on workstation # [id number]
== END ==
LOC: RAD 08:03
PROVIDERS: ATTEND Obstetrics & Gynecology
DX: Z12.31 Encounter for screening mammogram for malignant neoplasm of breast (principal)
CPT/HCPCS: 77063; 77067

== ENCOUNTER → 2023-01-10 | Outpatient (CLI) | payer BC ==
[~2023-01-10] MED LIST changes: +ENAL-70 PO; -ENAL20TA16 PO
--- NOTE | 2023-01-10 14:51 | Diagnostic Imaging Report ---
CT SINUS COMPLETE WO DATE: 01/10/2023 2:22 PM INDICATION: LEFT NOSE DRAINAGE. COMPARISON: None. TECHNIQUE: CT images of the paranasal sinuses were obtained without intravenous contrast. Coronal and sagittal reformatted images were performed at a separate workstation and reviewed. One or more of the following dose reduction techniques were utilized: Automated exposure control (AEC), Adjustment of mA and/or kV according to patient size, Use of iterative reconstruction technique such as ASiR, CT scan done according to ALARA and image gently/image wisely FINDINGS: 70% opacification of the bilateral maxillary sinuses. 90% opacification of the bilateral anterior ethmoid air cells. Complete opacification of the right posterior ethmoid air cell. Mild partial opacification of the left posterior ethmoid air cell. 50% opacification of the sphenoid sinus. 90% opacification of the frontal sinuses. Complete opacification of the left bilateral ostiomeatal units. Leftward deviation of the nasal septum. No airway lesions identified. No bony erosion. The soft tissues are normal. The visualized intracranial structures are normal. The middle ear cavities and mastoid air cells are clear. The visualized osseous structures are otherwise normal. The visualized orbits and globes are normal. The visualized brain parenchyma is normal in attenuation. IMPRESSION: Pansinus mucosal thickening described above concerning for sinusitis. Dictated by: Dictated on workstation # [id number]
== END ==
LOC: RAD 13:37
PROVIDERS: ATTEND Otolaryngology Otolaryngology/Facial Plastic Surgery
DX: J32.4 Chronic pansinusitis (principal)
CPT/HCPCS: 36415; 70486; 86335

== ENCOUNTER 2023-01-30 05:27 | Outpatient (CLI) | payer BC ==
[~2023-01-30] VITALS: Ht 175.3 cm; Wt 102.3 kg
[2023-01-30] MEDS ORDERED: BACI1TAB24 PO (11:03)
[2023-01-30] MEDS ORDERED: BENZ100C18 PO (11:03)
[2023-01-30] MEDS ORDERED: RIFA550T PO (11:03)
== END 2023-01-30 11:32 | disposition home or self-care (01) ==
LOC: PREOP 05:27
PROVIDERS: ATTEND Otolaryngology Otolaryngology/Facial Plastic Surgery
DX: Z01.818 Encounter for other preprocedural examination (principal)

== ENCOUNTER 2023-02-06 06:34 | Day surgery (SDC) | payer BC ==
[~2023-02-06] VITALS: Ht 175 cm; Wt 102.3 kg
[2023-02-06] VITALS (11 sets, daily range): BP systolic 99–128; BP diastolic 66–88
[~2023-02-06 06:34] MED LIST changes: +BACI1TAB24 PO; +BENZ100C18 PO; +RIFA550T PO
--- NOTE | 2023-02-06 07:06 | Progress Note-Pre Operative ---
Pre-Operative Progress Note Date of Available H&P: Feb 06, 2023 Date H&P Reviewed: Feb 06, 2023 Time H&P Reviewed: 06:30 History & Physical: H&P Reviewed, Patient Examed, No changes noted Changes from last HP none Pre-Operative Diagnosis: Bilat Chronic Sinusitis, Bialt Hyper of INf Turbs KRISHAN LINCOLN MD Feb 06, 2023 07:06
[2023-02-06] MEDS ORDERED: COCAINE 4% TOPICAL SOLN 2 ML SYR ONE (07:07)
[2023-02-06] MEDS ORDERED: PHENYLEPHRINE 0.5% (REGULAR) NASAL SPRAY 15 ML ONE (07:07)
[2023-02-06] MEDS ORDERED: LIDOCAINE 2% w/EPI 1:100,000 20 ML VIAL ONE (07:08)
[2023-02-06] MEDS ORDERED: BSS 15 ML ONE (07:08)
--- NOTE | 2023-02-06 07:08 | Progress Note-Post Operative ---
Post-Operative Progess Note Surgeon (s)/Landscape Artist (s) Surgeon KRISHAN LINCOLN MD Landscape Artist n/a Pre-Operative Diagnosis Bilat Chronic Sinusitis, Bialt Hyper of INf Turbs Post-Operative Diagnosis same Post-Op Procedure Note Date of Procedure: Feb 06, 2023 Name of Procedure Performed: Bialt ESS, Bilat Red of Inf Turbs Description & Findings Description and Findings: n/a Anesthesia Type get Estimated Blood Loss minimal Packing none. Specimen(s) collected/removed bilat chornic Sinusitis KRISHAN LINCOLN MD Feb 06, 2023 07:08
[2023-02-06 07:10] LABS: BASOPHILS % (AUTO) 1 % (0-10); EOSINOPHILS # (AUTO) 0.1 10^3/uL (0.0-0.3); EOSINOPHILS % (AUTO) 2 % (0-10); HEMATOCRIT 37 % (35-52); HEMOGLOBIN 12.7 g/dL (11.5-16.0); LYMPHOCYTES # (AUTO) 1.8 10^3/uL (1.0-4.0); LYMPHOCYTES % (AUTO) 26 % (12-44); MEAN CORPUSCULAR HEMOGLOBIN 33 pg (25-34); MEAN CORPUSCULAR HGB CONC 34 g/dL (32-36); MEAN CORPUSCULAR VOLUME 95 fL (80-99); MEAN PLATELET VOLUME 9.8 fL (9.0-12.2); MONOCYTES # (AUTO) 0.6 10^3/uL (0.0-1.0); MONOCYTES % (AUTO) 9 % (0-12); NEUTROPHILS # (AUTO) 4.3 10^3/uL (1.8-7.8); NEUTROPHILS % (AUTO) 63 % (42-75); PLATELET COUNT 225 10^3/uL (130-400); WHITE BLOOD COUNT 6.9 10^3/uL (4.3-11.0)
[2023-02-06] MEDS ORDERED: HYDROcodone/ACETAMINOPHEN 5 MG/325 MG TABLET PO PRN (07:15)
[2023-02-06] MEDS ORDERED: LACTATED RINGERS 1,000 ML 1,000 ML IV PRN (07:15)
[2023-02-06] MEDS ORDERED: D5 1/2NS + KCL 20 MEQ/L 1000ML 1,000 ML IV SCH (07:15)
[2023-02-06] MEDS ORDERED: PROMETHAZINE INJ 25 MG/ML VIAL IVP PRN (07:15)
[2023-02-06 07:23] LABS: POTASSIUM 3.4 MMOL/L (3.6-5.0)
[2023-02-06 07:24] LABS: CALCIUM 9.9 MG/DL (8.5-10.1)
[2023-02-06 07:29] LABS: CREATININE SERUM 0.85 MG/DL (0.60-1.30)
[2023-02-06] MEDS ORDERED: ROCURONIUM 50 MG/5 ML VIAL IV ONE (07:54)
[2023-02-06] MEDS ORDERED: LIDOCAINE PF 2% 5 ML VIAL ONE (07:54)
[2023-02-06] MEDS ORDERED: proPOfol INJECTION 200 MG/20 ML VIAL IV ONE (07:54)
[2023-02-06] MEDS ORDERED: fentaNYL INJECTION 100 MCG/2 ML VIAL ONE (07:54)
[2023-02-06] MEDS ORDERED: MIDAZOLAM INJ 2 MG/2 ML VIAL ONE (07:54)
[2023-02-06] MEDS ORDERED: ONDANSETRON INJECTION 4 MG/2 ML (SDV) ONE (07:54)
[2023-02-06] MEDS ORDERED: dexAMETHasone INJ 10 MG/ML 1 ML VIAL ONE (07:54)
[2023-02-06] MEDS ORDERED: GLYCOPYRROLATE INJ 0.2 MG/ML 2 ML VIAL ONE (07:54)
[2023-02-06] MEDS ORDERED: NEOSTIGMINE 1 MG/1ML 10 ML VIAL ONE (07:55)
[2023-02-06] MEDS ORDERED: predniSONE 20 MG TABLET PO ONE (08:30)
[2023-02-06] MEDS ORDERED: AMPICILL/SULB 1.5 GM VIAL (UNASYN) ONE (08:32)
[2023-02-06] MEDS ORDERED: HYDROCORTISONE INJECTION 100 MG/2 ML VIAL ONE (08:47)
[2023-02-06] MEDS ORDERED: COCAINE 4% TOPICAL SOLN 2 ML SYR NS ONE (08:50)
[2023-02-06] MEDS ORDERED: PHENYLEPHRINE 0.5% (REGULAR) NASAL SPRAY 15 ML NS ONE (08:51)
[2023-02-06] MEDS ORDERED: BSS 15 ML TOP ONE (08:52)
[2023-02-06] MEDS ORDERED: PHENYLEPHRINE 100 MCG/ML 10 ML (ANESTHESIA) SYR ONE (09:30)
[2023-02-06] MEDS ORDERED: SEVOFLURANE (ULTANE) 15 ML INHAL SOLN ONE (09:30)
[2023-02-06] MEDS ORDERED: LIDOCAINE 2% w/EPI 1:100,000 20 ML VIAL INJ ONE (09:30)
--- NOTE | 2023-02-06 09:48 | Anesthesia-General Post-Op ---
General Patient Condition Mental Status/LOC: Same as Preop Cardiovascular: Satisfactory Nausea/Vomiting: Absent Respiratory: Satisfactory Pain: Controlled Complications: Absent Post Op Complications Complications None Follow Up Care/Instructions Patient Instructions None needed. Anesthesia/Patient Condition Patient Condition Patient is doing well in PACU with no complaints, stable vital signs, no apparent adverse anesthesia problems. No complications reported per nursing. JYOCE SANTIAGO DO Feb 06, 2023 09:48
[2023-02-06] MEDS ORDERED: HYDROmorphone INJECTION 2 MG/ML VIAL IV ONE (10:00)
[2023-02-06] MEDS ORDERED: morphine INJ 10 MG/ML 1ML (SYR OR VIAL) IVP ONE (10:00)
[2023-02-06] MEDS ORDERED: ONDANSETRON INJECTION 4 MG/2 ML (SDV) IVP PRN (10:00)
== END 2023-02-06 11:30 | disposition home or self-care (01) ==
LOC: SDC 06:34
PROVIDERS: ATTEND Otolaryngology Otolaryngology/Facial Plastic Surgery
DX: J32.4 Chronic pansinusitis (principal); J34.3 Hypertrophy of nasal turbinates; J34.89 Other specified disorders of nose and nasal sinuses; Z87.891 Personal history of nicotine dependence
CPT/HCPCS: 36415; 80048; 85025; 87081; 93005